=== PATIENT | female | born 1950 | race Caucasian/White ===

== ENCOUNTER 2017-01-19 15:07 | Inpatient (IN) | payer OTHER ==
[2017-01-19 17:09] LABS: Urine Bacteria Absent (Absent); Urine Bilirubin Negative (Negative); Urine Glucose Negative (Negative); Urine Nitrite Negative (Negative)
[2017-01-19 17:27] LABS: Hematocrit 38 % (35-47); Hemoglobin 12.7 g/dl (12.0-16.0); Mean Corpuscular HGB Conc 34 g/dl (31-36); Mean Corpuscular Hemoglobin 31 pg (27-31); Mean Corpuscular Volume 92 fL (80-97); Mean Platelet Volume 9 um3 (7.4-10.4); Red Blood Count 4.12 10^6/ul (4.0-5.4); Red Cell Distribution Width 13 % (10.5-15)
[2017-01-19 17:47] LABS: ALT 41 U/L (7-52); AST 62 U/L (13-39); Albumin 4.4 g/dL (3.2-5.2); Alkaline Phosphatase 97 U/L (34-104); Anion Gap 6 mmol/L (2-11); BUN/Creatinine Ratio 14.5 (8-20); Blood Urea Nitrogen 9 mg/dL (6-24); CO2 Carbon Dioxide 27 mmol/L (22-32); Calcium 9.6 mg/dL (8.6-10.3); Chloride 105 mmol/L (101-111); Creatine Kinase 391 U/L (10-223); EGFR African American 124.2 (>60); EGFR Non-African American 96.6 (>60); Globulin 3.4 g/dL (2-4); Glucose 80 mg/dL (70-100); Potassium 3.5 mmol/L (3.5-5.0); Sodium 138 mmol/L (133-145); Total Protein 7.8 g/dL (6.4-8.9)
[2017-01-19 18:01] LABS: Acetaminophen < 15 mcg/mL; Alcohol < 10 mg/dL (<10); Salicylate < 2.50 mg/dL (<30)
[2017-01-19 18:02] LABS: Phenytoin 35.9 mcg/mL (10-20)
[2017-01-19 18:05] LABS: Magnesium 1.9 mg/dL (1.9-2.7)
[2017-01-19 18:11] LABS: TSH (Thyroid Stimulating Horm) 5.34 mcIU/mL (0.34-5.60)
[2017-01-19] MEDS ORDERED: Acetaminophen TAB* 325 MG PO PRN (19:30)
[2017-01-19] MEDS ORDERED: CMCS: Melatonin (NF) 3 MG TAB PO PRN (19:30)
[2017-01-19] MEDS ORDERED: Ondansetron INJ* 2 MG/ML VIAL IV PRN (19:30)
[2017-01-19] MEDS ORDERED: Venlafaxine EXT RELEASE CAP* 37.5 MG PO ONE ×2 (19:31→23:00)
[2017-01-19] MEDS ORDERED: LORazepam TAB(*) 1 MG PO PRN (19:34)
--- NOTE | 2017-01-19 19:40 | HP ---
H&P (Free Text) History and Physical: PCP: Rich Sosa MD Date/Time of Evaluation: 01/19/2017 1930 CC: confusion HPI: Mrs Rd Mcclure is a 66YO female HX chronic pain, seizures, migraines, depression who per her is notably better now than upon arrival, but is still quite fidgety & unable to give an accurate history. She does states that she has not taken her meds for 2days, but cannot explain why. Her states he found tizanidine in the bathtub, hydromorphone spilled on the counter , another medication bottle full of water, etc. Essentially it is unclear whether she has taken no meds or possibly some meds excessively and others less than prescribed. Colleen Ray MD neurology saw her in the ED and recommends overnight observation, giving a small dose of venlafaxine in case she is withdrawing, and holding her phenytoin as she is toxic on it. PMedHx seizure disorder migraines ANJELICA hypothyroidism depression chronic pain cyclic vomiting syndrome levetiracetam induced mood disorder Allergies Meperidine [From Demerol HCl] Allergy (Severe, Verified 12/28/16 08:57) seizures Doxepin Adverse Reaction (Severe, Verified 12/28/16 08:57) See Comment MOOD ALERATIONS PER DR MATTHEWS, ON 01/28/15 Gabapentin Adverse Reaction (Severe, Verified 12/28/16 08:57) See Comment MOOD ALTERATIONS PER DR MATTHEWS 01/28/15 Levetiracetam [From Keppra] Adverse Reaction (Severe, Verified 12/28/16 08:57) See Comment MOOD ALTERATIONS PER DR MATTHWES 01/28/15 Ambulatory Orders Morphine PUMP REFILL 8.279 mg INTRATHEC DAILY 12/18/12 Rivaroxaban TAB(*) [Xarelto 20 mg] 20 mg PO DAILY 03/15/15 Tizanidine HCl 8 mg PO Q6HR PRN MDD 32 mg 03/20/15 Methylphenidate TAB* [Ritalin TAB*] 10 mg PO 0700,1400 PRN 06/28/15 ARIPiprazole TAB* [Abilify TAB*] 5 mg PO DAILY 09/21/16 Calcium Carbonate-Cholecalcife [Calcium 600 + D 600-200 mg-Unit] 1 tab PO DAILY 09/21/16 Hydromorphone HCl [Dilaudid] 8 mg PO BID PRN 09/21/16 Levothyroxine TAB* [Synthroid TAB*] 75 mcg PO DAILY 09/21/16 Multiple Vitamins W/ Minerals [Centrum] 1 tab PO DAILY 09/21/16 Phenytoin CHEW TAB(*) [Dilantin Infatabs CHEW TAB(*)] 100 mg PO BID 09/21/16 Tretinoin Microsphere [Retin-A Micro] 0.04 % TOPICAL DAILY 09/21/16 Venlafaxine EXT RELEASE CAP* [Effexor Xr CAP*] 75 mg PO DAILY 09/21/16 PSurgHx numerous orthopedic surgeries appendectomy ectopic excision SocHx: no tobacco, alcohol, or recreational drugs; , lives with her ; full code status FamHx: unable to obtain at this time 2nd confusion ROS: as above, otherwise reviewed and all were negative Constitutional: NAD, normally developed, well-nourished white female vitals: Vital Signs Temp 36.1 C 01/19/17 15:14 Pulse 91 01/19/17 18:00 Resp 19 01/19/17 19:00 BP 111/83 01/19/17 16:26 Pulse Ox 96 01/19/17 18:00 Intake & Output 01/18/17 01/19/17 01/19/17 23:59 11:59 23:59 Weight 62.596 kg HEENM: atraumatic; sclera/conjunctiva: non-icteric/clear; hearing: clinically intact; oropharynx: clear, mucosa moist Neck: soft tissue: non-tender; thyroid: normal Pulmonary: clear to auscultation bilaterally, good aeration, no accessory muscle use CV: RR/RR, normal S1S2, no carotid bruit, no jugular venous distention, 2+ B DP/ PT, no edema Abdominal: soft, non-distended, non-tender, no rebound/guarding/rigidity, normoactive bowel sounds, no hepatosplenomegaly or masses, no costovertebral angle tenderness Musculoskeletal: general: grossly intact; gait: borderline stability Integumental: normal appearance and texture Psychiatric orientation: AA&O to PP, loosely to situation affect: agitated mood: cooperative eye contact: poor content: unreliable memory: currently impaired responses: timely insight: poor Testing: Lab Results 01/19/17 01/19/17 01/19/17 Range/Units 16:18 17:15 17:15 WBC 11.0 H (3.5-10.8) 10^3/ul RBC 4.12 (4.0-5.4) 10^6/ul Hgb 12.7 (12.0-16.0) g/dl Hct 38 (35-47) % MCV 92 (80-97) fL MCH 31 (27-31) pg MCHC 34 (31-36) g/dl RDW 13 (10.5-15) % Plt Count 261 (150-450) 10^3/ul MPV 9 (7.4-10.4) um3 Neut % (Auto) 49.9 (38-83) % Lymph % (Auto) 36.3 (25-47) % Canadian % (Auto) 10.9 H (1-9) % Eos % (Auto) 1.9 (0-6) % Baso % (Auto) 1.0 (0-2) % Absolute Neuts (auto) 5.5 (1.5-7.7) 10^3/ul Absolute Lymphs (auto) 4.0 (1.0-4.8) 10^3/ul Absolute Monos (auto) 1.2 H (0-0.8) 10^3/ul Absolute Eos (auto) 0.2 (0-0.6) 10^3/ul Absolute Basos (auto) 0.1 (0-0.2) 10^3/ul Absolute Nucleated RBC 0.01 10^3/ul Nucleated RBC % 0.1 INR (Anticoag Therapy) (0.89-1.11) Sodium 138 (133-145) mmol/L Potassium 3.5 (3.5-5.0) mmol/L Chloride 105 (101-111) mmol/L Carbon Dioxide 27 (22-32) mmol/L Anion Gap 6 (2-11) mmol/L BUN 9 (6-24) mg/dL Creatinine 0.62 (0.51-0.95) mg/dL Est GFR ( Amer) 124.2 (>60) Est GFR (Non-Af Amer) 96.6 (>60) BUN/Creatinine Ratio 14.5 (8-20) Glucose 80 (70-100) mg/dL Lactic Acid (0.5-2.0) mmol/L Calcium 9.6 (8.6-10.3) mg/dL Magnesium 1.9 (1.9-2.7) mg/dL Total Bilirubin 0.50 (0.2-1.0) mg/dL AST 62 H (13-39) U/L ALT 41 (7-52) U/L Alkaline Phosphatase 97 (34-104) U/L Ammonia (16-53) mol/L Total Creatine Kinase 391 H (10-223) U/L Troponin I 0.00 (<0.04) ng/mL Total Protein 7.8 (6.4-8.9) g/dL Albumin 4.4 (3.2-5.2) g/dL Globulin 3.4 (2-4) g/dL Albumin/Globulin Ratio 1.3 (1-3) TSH 5.34 (0.34-5.60) mcIU/mL Urine Color Yellow Urine Appearance Clear Urine pH 7.0 (5-9) Ur Specific Arlee 1.008 L (1.010-1.030) Urine Protein Negative (Negative) Urine Ketones Negative (Negative) Urine Blood Negative (Negative) Urine Nitrate Negative (Negative) Urine Bilirubin Negative (Negative) Urine Urobilinogen Negative (Negative) Ur Leukocyte Esterase Trace H (Negative) Urine WBC (Auto) Trace(0-5/hpf) (Absent) Urine RBC (Auto) Absent (Absent) Ur Squamous Epith Cells Present H (Absent) Urine Bacteria Absent (Absent) Urine Glucose Negative (Negative) Salicylates < 2.50 (<30) mg/dL Acetaminophen < 15 mcg/mL Phenytoin 35.9 H* (10-20) mcg/mL Serum Alcohol < 10 (<10) mg/dL 01/19/17 01/19/17 01/19/17 Range/Units 17:15 17:15 17:15 WBC (3.5-10.8) 10^3/ul RBC (4.0-5.4) 10^6/ul Hgb (12.0-16.0) g/dl Hct (35-47) % MCV (80-97) fL MCH (27-31) pg MCHC (31-36) g/dl RDW (10.5-15) % Plt Count (150-450) 10^3/ul MPV (7.4-10.4) um3 Neut % (Auto) (38-83) % Lymph % (Auto) (25-47) % Canadian % (Auto) (1-9) % Eos % (Auto) (0-6) % Baso % (Auto) (0-2) % Absolute Neuts (auto) (1.5-7.7) 10^3/ul Absolute Lymphs (auto) (1.0-4.8) 10^3/ul Absolute Monos (auto) (0-0.8) 10^3/ul Absolute Eos (auto) (0-0.6) 10^3/ul Absolute Basos (auto) (0-0.2) 10^3/ul Absolute Nucleated RBC 10^3/ul Nucleated RBC % INR (Anticoag Therapy) 1.37 H (0.89-1.11) Sodium (133-145) mmol/L Potassium (3.5-5.0) mmol/L Chloride (101-111) mmol/L Carbon Dioxide (22-32) mmol/L Anion Gap (2-11) mmol/L BUN (6-24) mg/dL Creatinine (0.51-0.95) mg/dL Est GFR ( Amer) (>60) Est GFR (Non-Af Amer) (>60) BUN/Creatinine Ratio (8-20) Glucose (70-100) mg/dL Lactic Acid 1.7 (0.5-2.0) mmol/L Calcium (8.6-10.3) mg/dL Magnesium (1.9-2.7) mg/dL Total Bilirubin (0.2-1.0) mg/dL AST (13-39) U/L ALT (7-52) U/L Alkaline Phosphatase (34-104) U/L Ammonia 51 (16-53) mol/L Total Creatine Kinase (10-223) U/L Troponin I (<0.04) ng/mL Total Protein (6.4-8.9) g/dL Albumin (3.2-5.2) g/dL Globulin (2-4) g/dL Albumin/Globulin Ratio (1-3) TSH (0.34-5.60) mcIU/mL Urine Color Urine Appearance Urine pH (5-9) Ur Specific Arlee (1.010-1.030) Urine Protein (Negative) Urine Ketones (Negative) Urine Blood (Negative) Urine Nitrate (Negative) Urine Bilirubin (Negative) Urine Urobilinogen (Negative) Ur Leukocyte Esterase (Negative) Urine WBC (Auto) (Absent) Urine RBC (Auto) (Absent) Ur Squamous Epith Cells (Absent) Urine Bacteria (Absent) Urine Glucose (Negative) Salicylates (<30) mg/dL Acetaminophen mcg/mL Phenytoin (10-20) mcg/mL Serum Alcohol (<10) mg/dL Impression: 66F presenting with confusion 2nd medication non-adherence, uncertain as to whether inadequate dosing or excessive dosing DIAGNOSIS & PLAN Primary confusion suspected 2nd medication non-adherence, phenytoin toxicity : concern for venlafaxine toxicity vs withdrawal, Dr Ray recommended 37.5mg x1 dose & monitor for effect : hold phenytoin, check level daily : neurochecks : supplemental oxygen : PRN lorazepam PO for anxiety/tremulousness : supportive care Secondary seizure disorder : hold & monitor phenytoin level as above hypothyroidism : continue levothyroxine depression : continue aripiprazole chronic pain : continue morphine intrathecal pump : hold hydromorphone cyclic vomiting syndrome : PRN anti-emetics Admission Rational: observation for confusion felt to be 2nd medication non- adherence DVTp: heparin SQ & SCDs Code Status: full HCP:
[2017-01-19] MEDS: Docusate CAP* 100 MG PO SCH (23:03)
[2017-01-19] MEDS: NS 0.9% 1000 ML* 1,000 ML IV SCH (23:15)
--- NOTE | 2017-01-19 23:55 | CONS ---
NEUROLOGY CONSULTATION: DATE OF CONSULT: 01/19/17 REFERRING PROVIDER: Dr. Douglass. LOCATION: She is in the emergency room. CHIEF COMPLAINT: Confusion, falling, tremors. HISTORY OF PRESENT ILLNESS: Jennifer Sultana is now 66 years old and who has been known to me for years for chronic back pain, cyclic vomiting, and seizures. She was last seen in my office on 12/26/15. She had had seizures in the distant past and then episodes of cyclic vomiting with some followed by confusion and seizures. She was put on Dilantin and that seemed to work quite well. When I last saw her in the office, she was on Dilantin 200 mg b.i.d. According to Goyo and her, she has been progressively confused and falling for at least 2 to 3 weeks, if not 4. They travelled to [place] and she changed the way that she keeps track of her medications, by putting them all in a few containers. Previously, she would have a weekly capacity planner. She admits and he admits that she was probably not taking them regularly and got very confused over what was what. They returned back and she seemed even more confused. Last night, he found her on the floor with medications in the tub, on the floor , and on the sink, some of which have been wet and decomposed. She said that she stopped all of her medications for the last 2 days, but she cannot give a coherent reason why. She does have an intrathecal pump in and so she does have opioids from that way, but other medicines have been changed. Of note, with this hospitalization, her phenytoin level has come back today at 35.9. She says she has not taken any for 2 days but she is extremely distractible and inconsistent with her story and so it is really hard to be certain as to when she last took it. Goyo's presumption is that she was probably even more toxic a few days ago on it. PAST MEDICAL HISTORY: Notable for chronic neck and back pain, numerous spinal surgeries and orthopedic surgeries over many decades. Epilepsy, deep vein thrombosis. MEDICATIONS: Medications are very hard to sort out as they cannot give me a coherent list. According to my last office visit, she is on: 1. Dilantin 200 mg b.i.d. 2. Xarelto 20 mg p.o. daily. 3. Abilify 5 mg p.o. daily. 4. Dilaudid 8 mg every 4 hours, which she says she takes 1 or 2. 5. Tizanidine 8 mg p.o. q.6 hours. 6. Morphine pump. 7. Ritalin 5 mg one p.o. b.i.d. 8. Effexor XR 37.5 mg one daily. She says that the Effexor is 25 mg and she is taking 3 in the morning and 2 at night and he says that she is supposed to be taking 3 a day, so again, this is all quite uncertain and unsubstantiated. REVIEW OF SYSTEMS: Notable for multiple falls over several weeks including a couple of abrasions, but no serious injuries. She has chronic pain and gets blocks periodically when Xarelto is held. She has been very twitchy and shaky for days, if not weeks. Her cyclical vomiting has been better since she was put on Dilantin over a year ago. She has been doing compulsive behavior such as singing, which she seems not to be able to stop at times. She has been unsteady on her feet. PHYSICAL EXAMINATION: She is extremely distractible and inattentive. Her blood pressure is 140/70, heart rate is about 100 and seems regular, respiratory rate is 18. Heart is in regular rate and rhythm. Neurologically, eye movements are full without nystagmus. She has fairly constant bifacial dyskinesias. She has severe action and sustention tremor in both hands but no asterixis or myoclonus. She has had dyskinesias in her limbs. Keeps moving her trunk and legs. She is alert but extremely inattentive and a poor historian. She jumps from topic to topic. Language is otherwise generally fluent. LABORATORY DATA: Notable for an EKG in sinus rhythm, there is quite a bit of movement artifact on it from tremor. She has a nonspecific intraventricular conduction delay. QTC corrected is 496. Other laboratory data includes a CBC notable for hemoglobin 11.0 and otherwise a normal CBC. Coags notable for INR 1.37. Chemistry is notable for CPK 391, AST 62. Ammonia level is 51 and chemistries are otherwise unremarkable. Toxicology notable for a phenytoin level 35.9. IMPRESSION: At least Dilantin toxicity, if not multiple medication toxicity. Serotonin syndrome or even serotonin withdrawal remained a possibility. Also she is very dyskinetic and so she may have taken too much Abilify or alternatively be withdrawing from Abilify. I think she needs to be hospitalized and have her heart monitored. I recommend checking Dilantin levels every day and holding it for now. She should probably get benzodiazepines either on a VAM protocol or on a p.r.n. basis and I would like to discuss that with the hospitalist. Recommend giving her a small dose of serotonergic agent such as her Effexor in case she is having serotonin withdrawal. Abilify should probably be resumed tomorrow. Her liver enzymes should probably be followed but so far, she just has a slight elevation in one of them. I have discussed by phone with Dr. Douglass who is signing off apparently to Dr. Power. CC: Dr. Sosa* [id number]/[facility] #: [id number] MTDD
[2017-01-20 03:49] LABS: Benzodiazepine Urine Screen Presumptive Positive (None Detect)
[2017-01-20 05:49] LABS: Hematocrit 35 % (35-47); Hemoglobin 11.7 g/dl (12.0-16.0); Mean Corpuscular HGB Conc 34 g/dl (31-36); Mean Corpuscular Hemoglobin 31 pg (27-31); Mean Corpuscular Volume 93 fL (80-97); Mean Platelet Volume 8 um3 (7.4-10.4); Red Blood Count 3.74 10^6/ul (4.0-5.4); Red Cell Distribution Width 13 % (10.5-15); White Blood Count 7.1 10^3/ul (3.5-10.8)
[2017-01-20] MEDS: Levothyroxine TAB* 75 MCG TAB PO SCH (05:53)
[2017-01-20] MEDS: Omeprazole CAP* 20 MG PO SCH (05:54)
[2017-01-20 06:18] LABS: Phenytoin 30.3 mcg/mL (10-20)
[2017-01-20] MEDS: NS 0.9% 1000 ML* 1,000 ML IV SCH (07:24)
[2017-01-20] MEDS: Docusate CAP* 100 MG PO SCH ×2 (08:54→20:14)
[2017-01-20] MEDS: ARIPiprazole TAB* 5 MG PO SCH (08:54)
[2017-01-20] MEDS ORDERED: MORPHINE INTRATHEC SCH (09:00)
[2017-01-20] MEDS ORDERED: INTRATHECAL PAIN PUMP INTRATHEC SCH (14:00)
--- NOTE | 2017-01-20 15:31 | PN ---
Subjective Date of Service: 01/20/17 Interval History: . Patient evaluated at the bedside. A+O x3 but is noted to be lethargic. She denies pain. Reports she feels better today "less sleepy". Denies SOB, CP, fever or chills. No abdominal pain, N/V/D. Spoke to over phone who reported she vomited last week in the middle of the night but it was only once, he denies any recent illness such as a cold, fever, diarrhea. Objective Active Medications: Acetaminophen (Tylenol Tab*) 650 mg PO Q6H PRN PRN Reason: FEVER/PAIN Last Admin: 01/19/17 23:03 Dose: 650 mg Aripiprazole (Abilify Tab*) 5 mg PO DAILY [facility] Last Admin: 01/20/17 08:54 Dose: 5 mg Docusate Sodium (Colace Cap*) 200 mg PO BID [facility] Last Admin: 01/20/17 08:54 Dose: 200 mg Sodium Chloride (Ns 0.9% 1000 Ml*) 1,000 mls @ 125 mls/hr IV PER RATE [facility] Last Admin: 01/20/17 07:24 Dose: 125 mls/hr Levothyroxine Sodium (Synthroid Tab*) 75 mcg PO DAILY@0600 [facility] Last Admin: 01/20/17 05:53 Dose: 75 mcg Lorazepam (Ativan Tab(*)) 1 mg PO Q4H PRN PRN Reason: ANXIETY Last Admin: 01/20/17 03:58 Dose: 1 mg Melatonin (Melatonin (Nf)) 3 mg PO BEDTIME PRN; Protocol PRN Reason: Sleep Miscellaneous (Intrathecal Pain Pump (Pt's Own)) 1 note INTRATHEC .SEE COMMENTS [facility] Omeprazole (Prilosec Cap*) 20 mg PO DAILY@0600 [facility] Last Admin: 01/20/17 05:54 Dose: 20 mg Ondansetron HCl (Zofran Inj*) 4 mg IV Q6H PRN PRN Reason: NAUSEA Rivaroxaban (Xarelto (*)) 20 mg PO DAILY@1700 [facility] Venlafaxine HCl (Effexor Tab (Nf)) 25 mg PO DAILY [facility] Vital Signs 01/19/17 01/19/17 01/19/17 20:30 20:32 20:38 Temperature 97.7 F Pulse Rate 93 Respiratory Rate Blood Pressure 154/74 (mmHg) O2 Sat by Pulse 96 Oximetry 01/19/17 01/19/17 01/20/17 21:25 23:59 00:37 Temperature 98.7 F 97.7 F Pulse Rate 90 86 Respiratory 18 16 20 Rate Blood Pressure 135/81 131/67 (mmHg) O2 Sat by Pulse 96 96 Oximetry 01/20/17 01/20/17 01/20/17 03:56 03:58 05:56 Temperature 97.8 F Pulse Rate 95 Respiratory 16 20 18 Rate Blood Pressure 154/72 (mmHg) O2 Sat by Pulse 96 Oximetry 01/20/17 01/20/17 01/20/17 07:41 08:00 11:57 Temperature 97.5 F 97.3 F Pulse Rate 91 81 Respiratory 16 16 17 Rate Blood Pressure 153/87 144/86 (mmHg) O2 Sat by Pulse 97 97 Oximetry 01/20/17 01/20/17 13:45 15:11 Temperature 98.4 F Pulse Rate 82 Respiratory 16 Rate Blood Pressure 142/75 (mmHg) O2 Sat by Pulse 96 96 Oximetry Oxygen Devices in Use Now: None Appearance: 66 yo female laying in bed resting, opens eyes when I enter the room , interactive but sleepy, A+O x3. follows commands and asnswer questions. Eyes: No Scleral Icterus, PERRLA Ears/Nose/Mouth/Throat: NL Teeth, Lips, Gums, Mucous Membranes Moist Neck: NL Appearance and Movements; NL JVP Respiratory: Symmetrical Chest Expansion and Respiratory Effort, Clear to Auscultation Cardiovascular: NL Sounds; No Murmurs; No JVD, RRR, No Edema Abdominal: NL Sounds; No Tenderness; No Distention, - - left lower quad noted intrathecal pump. Lymphatic: No Cervical Adenopathy Extremities: No Edema, No Clubbing, Cyanosis Skin: No Rash or Ulcers, No Nodules or Sclerosis Neurological: Alert and Oriented x 3, NL Sensation, NL Gait, NL Muscle Strength and Tone Lines/Tubes/Other Access: Clean, Dry and Intact PICC Line Nutrition: Taking PO's Result Diagrams: 01/20/17 05:33 01/19/17 17:15 Assess/Plan/Problems-Billing Assessment: 66 yo female with PMH of chronic pain with intrathecal morphine pump , seizures, migraines, depression who presented with with concern for confusion. - Patient Problems (1) Confusion Comment: - improved from admission but continues to be lethargic. Suspect Phenytoin toxicity and polysubstance abuse vs overdose?? - Neurologist, Dr. Ray, following. Recommends tele monitoring, - recheck phenytoin level in am. - Obtain EKG (2) Polysubstance abuse Comment: - ?? - per she typically does not abuse her pain medications - hold Ritalin, Dilaudid (3) Chronic pain Comment: Continue Intrathecal morphine pump hold diluadid (4) Seizures Comment: follow by Dr. Ray. Phenytoin toxicity - level 30 this am, recheck in am, monitor on tele seizure precautions (5) Hypothyroid Comment: Continue levothyroxine. (6) Hx of pulmonary embolus Comment: - continue xarelto (7) Full code status (8) DVT prophylaxis Comment: xarelto Status and Disposition: switch to inpatient.
[2017-01-20] MEDS: Rivaroxaban TAB(*) 20 MG TAB PO SCH (16:26)
[2017-01-20] MEDS: CMCS: Venlafaxine TAB (NF) 25 MG TAB PO SCH (16:26)
--- NOTE | 2017-01-20 22:06 | CONS ---
NEUROLOGY FOLLOWUP: DATE OF FOLLOWUP: DATE OF DICTATION: 01/20/17 CHIEF COMPLAINT: Dilantin toxicity. INTERVAL HISTORY: Since last evening, Jennifer has had her Dilantin held and she got 1 dose of Effexor. She has been getting lorazepam as needed. It looks like she got 1 mg at 4 this morning, but none since. She is pretty lethargic at this point, does not have much in the way of complaints, but other than feeling tired. MEDICATIONS: Reviewed and she is on: 1. Abilify 5 mg p.o. q. day. 2. Lorazepam 1 mg q.4 hours as needed. 3. Levothyroxine 75 mcg p.o. q. day. 4. Omeprazole 20 mg p.o. q. day. 5. Xarelto 20 mg p.o. q. day. PHYSICAL EXAM: She is afebrile, blood pressure 142/75, heart rate 82, and oxygen saturation 96%. She is lethargic and dysarthric. Eye movements are full without sustained nystagmus. She has mild tremor on [id number] maneuver, but not as bad as last evening. Again, she is pretty lethargic. IMPRESSION: Dilantin toxicity. RECOMMENDATION: Her Dilantin level came down from 35.9 last evening to 30.3 this morning. Recommend continuing to hold it and following levels. Would not reinstitute until it gets down into the low 20s and 100 mg a day. Probably should reinstitute her Effexor, so she does not go into serotonin withdrawal. We will follow up. [id number]/[facility] #: [id number] [facility]
[2017-01-21 05:18] LABS: Hematocrit 40 % (35-47); Hemoglobin 13.8 g/dl (12.0-16.0); Mean Corpuscular HGB Conc 34 g/dl (31-36); Mean Corpuscular Hemoglobin 31 pg (27-31); Mean Corpuscular Volume 91 fL (80-97); Mean Platelet Volume 8 um3 (7.4-10.4); Red Blood Count 4.44 10^6/ul (4.0-5.4); Red Cell Distribution Width 13 % (10.5-15); White Blood Count 7.1 10^3/ul (3.5-10.8)
[2017-01-21 05:31] LABS: BUN/Creatinine Ratio 11.5 (8-20); Calcium 9.2 mg/dL (8.6-10.3); EGFR African American 152.2 (>60); EGFR Non-African American 118.3 (>60); Globulin 3.2 g/dL (2-4); Potassium 3.4 mmol/L (3.5-5.0); Total Bilirubin 0.5 mg/dL (0.2-1.0); Total Protein 7.2 g/dL (6.4-8.9)
[2017-01-21 05:47] LABS: Phenytoin 24.6 mcg/mL (10-20)
[2017-01-21] MEDS: Levothyroxine TAB* 75 MCG TAB PO SCH (06:18)
[2017-01-21] MEDS: Omeprazole CAP* 20 MG PO SCH (06:18)
[2017-01-21] MEDS ORDERED: Potassium Chlor TAB* 20 MEQ TAB.ER PO ONE (07:09)
--- NOTE | 2017-01-21 07:57 | PN ---
Subjective Date of Service: 01/21/17 Interval History: pt sleeping when I arrived, woke easily, answered questions appropriately but continues to appear lethargic but more alert compared to yesterday. She denies any complaints. She states "Im always sleepy". Per she is more awake in the morning and by night time appears "more medicated". The pt and her denies she abuses her medications. She denies fever or chills. No SOB, CP. Reports "okay appetite". No abd pain, N/ V/D. normal BM this morning. Objective Active Medications: Acetaminophen (Tylenol Tab*) 650 mg PO Q6H PRN PRN Reason: FEVER/PAIN Last Admin: 01/19/17 23:03 Dose: 650 mg Aripiprazole (Abilify Tab*) 5 mg PO DAILY [facility] Last Admin: 01/20/17 08:54 Dose: 5 mg Docusate Sodium (Colace Cap*) 200 mg PO BID [facility] Last Admin: 01/20/17 20:14 Dose: 200 mg Levothyroxine Sodium (Synthroid Tab*) 75 mcg PO DAILY@0600 [facility] Last Admin: 01/21/17 06:18 Dose: 75 mcg Lorazepam (Ativan Tab(*)) 1 mg PO Q4H PRN PRN Reason: ANXIETY Last Admin: 01/20/17 03:58 Dose: 1 mg Melatonin (Melatonin (Nf)) 3 mg PO BEDTIME PRN; Protocol PRN Reason: Sleep Miscellaneous (Intrathecal Pain Pump (Pt's Own)) 1 note INTRATHEC .SEE COMMENTS [facility] Omeprazole (Prilosec Cap*) 20 mg PO DAILY@0600 [facility] Last Admin: 01/21/17 06:18 Dose: 20 mg Ondansetron HCl (Zofran Inj*) 4 mg IV Q6H PRN PRN Reason: NAUSEA Rivaroxaban (Xarelto (*)) 20 mg PO DAILY@1700 [facility] Last Admin: 01/20/17 16:26 Dose: 20 mg Venlafaxine HCl (Effexor Tab (Nf)) 25 mg PO DAILY [facility] Last Admin: 01/20/17 16:26 Dose: 25 mg Vital Signs 01/20/17 01/20/17 01/20/17 16:05 16:44 16:45 Temperature 98.1 F 98.2 F Pulse Rate 72 88 Respiratory 16 14 14 Rate Blood Pressure 122/107 134/65 (mmHg) O2 Sat by Pulse 99 100 Oximetry 01/20/17 01/20/17 01/21/17 20:00 20:10 00:06 Temperature 98.3 F 98.4 F Pulse Rate 79 76 Respiratory 15 15 16 Rate Blood Pressure 158/98 (mmHg) O2 Sat by Pulse 100 95 Oximetry 01/21/17 04:00 Temperature 97.9 F Pulse Rate 92 Respiratory 16 Rate Blood Pressure 153/85 (mmHg) O2 Sat by Pulse 97 Oximetry Oxygen Devices in Use Now: None Appearance: 66 yo female laying in bed resting, A+O x3 in NAD Eyes: No Scleral Icterus, PERRLA Ears/Nose/Mouth/Throat: NL Teeth, Lips, Gums, Mucous Membranes Moist Neck: NL Appearance and Movements; NL JVP Respiratory: Symmetrical Chest Expansion and Respiratory Effort, Clear to Auscultation Cardiovascular: NL Sounds; No Murmurs; No JVD, RRR, No Edema Abdominal: NL Sounds; No Tenderness; No Distention Extremities: No Edema, No Clubbing, Cyanosis Skin: No Rash or Ulcers, No Nodules or Sclerosis Neurological: Alert and Oriented x 3, NL Sensation, NL Muscle Strength and Tone Lines/Tubes/Other Access: Clean, Dry and Intact Peripheral IV Nutrition: Taking PO's Result Diagrams: 01/21/17 05:06 01/21/17 05:06 Assess/Plan/Problems-Billing Assessment: 66 yo female with PMH of chronic pain with intrathecal morphine pump , seizures, migraines, depression who presented with with concern for confusion. - Patient Problems (1) Confusion Comment: -much improvement from admission but continues to be mildy lethargic. Suspect phenytoin toxicity and polysubstance. No signs of infection. Per and pt they are adamant she takes her medications appropriately, but the states she is "out of it" at her baseline due to her medications so I suspect she was confused and was taking her pills inappropriately. Pt and have refused locked medication box and VNS services. Will need close f/u with PCP. - Phenytoin level trending down. No arrythmias noted on tele. - Hold Ritalin, PRN home Diluadid. Continue lower dose effexor (2) Chronic pain Comment: Follow by the pain clinic, with hx of multiple back surgeries, lumbar injections , chronic opioid use with intrathecal morphine pump and po diluadid prn. Continue Intrathecal morphine pump hold home diluadid (3) Seizures Comment: Neurology following. Phenytoin toxicity on admission, now trending down- level 24.6 this am. Hold Dilantin for now - neurology will decide when to restart. Recheck Dilantin level in am continue monitor on tele seizure precautions (4) Hypothyroid Comment: Continue levothyroxine. (5) Hx of pulmonary embolus Comment: - continue xarelto (6) Depressed Comment: - continue Effexor, Abilify - Discussed with pt and the risk of abilify and opioid combination and should follow up closely with PCP and pain clinic (7) Full code status (8) DVT prophylaxis Comment: xarelto Status and Disposition: continue inpatient. Tried to call PCP, not in office today.
[2017-01-21] MEDS: CMCS: Venlafaxine TAB (NF) 25 MG TAB PO SCH ×2 (08:26→20:37)
[2017-01-21] MEDS: Docusate CAP* 100 MG PO SCH ×2 (08:26→20:36)
[2017-01-21] MEDS: ARIPiprazole TAB* 5 MG PO SCH (08:26)
[2017-01-21] MEDS ORDERED: Venlafaxine EXT RELEASE CAP* 37.5 MG PO ONE (15:40)
--- NOTE | 2017-01-21 16:34 | PN ---
Progress Note - Progress Note SOAP: Neurology progress note Date of service: 01/21/17 Subjective: The patient feels slightly better today. She still does not think is back to her baseline. There has been no new symptoms, other than her noted more orolingual dyskinesia some time this afternoon, which is new, but he said he may have seen hints of these movements before. Objective: Vital Signs Temp Pulse Resp BP Pulse Ox 98.3 F 102 14 138/94 100 01/21/17 13:46 01/21/17 13:46 01/21/17 13:46 01/21/17 13:46 01/21/17 13:46 Current Medications Acetaminophen (Tylenol Tab*) 650 mg PO Q6H PRN PRN Reason: FEVER/PAIN Last Admin: 01/19/17 23:03 Dose: 650 mg Aripiprazole (Abilify Tab*) 5 mg PO DAILY [facility] Last Admin: 01/21/17 08:26 Dose: 5 mg Docusate Sodium (Colace Cap*) 200 mg PO BID [facility] Last Admin: 01/21/17 08:26 Dose: 200 mg Levothyroxine Sodium (Synthroid Tab*) 75 mcg PO DAILY@0600 [facility] Last Admin: 01/21/17 06:18 Dose: 75 mcg Lorazepam (Ativan Tab(*)) 1 mg PO Q4H PRN PRN Reason: ANXIETY Last Admin: 01/20/17 03:58 Dose: 1 mg Melatonin (Melatonin (Nf)) 3 mg PO BEDTIME PRN; Protocol PRN Reason: Sleep Miscellaneous (Intrathecal Pain Pump (Pt's Own)) 1 note INTRATHEC .SEE COMMENTS [facility] Omeprazole (Prilosec Cap*) 20 mg PO DAILY@0600 [facility] Last Admin: 01/21/17 06:18 Dose: 20 mg Ondansetron HCl (Zofran Inj*) 4 mg IV Q6H PRN PRN Reason: NAUSEA Phenytoin Sodium (Dilantin Infatabs Chew Tab(*)) 100 mg PO ONCE ONE Stop: 01/21/17 21:01 Phenytoin Sodium (Dilantin Infatabs Chew Tab(*)) 100 mg PO ONCE ONE Stop: 01/22/17 06:01 Rivaroxaban (Xarelto (*)) 20 mg PO DAILY@1700 [facility] Last Admin: 01/20/17 16:26 Dose: 20 mg Venlafaxine HCl (Effexor Tab (Nf)) 50 mg PO TID [facility] Laboratory Results - last 24 hr 01/21/17 01/21/17 05:06 05:06 WBC 7.1 RBC 4.44 Hgb 13.8 Hct 40 MCV 91 MCH 31 MCHC 34 RDW 13 Plt Count 277 MPV 8 Neut % (Auto) 58.1 Lymph % (Auto) 29.1 [place] % (Auto) 8.4 Eos % (Auto) 3.0 Baso % (Auto) 1.4 Absolute Neuts (auto) 4.2 Absolute Lymphs (auto) 2.1 Absolute Monos (auto) 0.6 Absolute Eos (auto) 0.2 Absolute Basos (auto) 0.1 Absolute Nucleated RBC 0 Nucleated RBC % 0 Sodium 135 Potassium 3.4 L Chloride 104 Carbon Dioxide 24 Anion Gap 7 BUN 6 Creatinine 0.52 Est GFR ( Amer) 152.2 Est GFR (Non-Af Amer) 118.3 BUN/Creatinine Ratio 11.5 Glucose 87 Calcium 9.2 Magnesium 2.0 Total Bilirubin 0.50 AST 55 H ALT 40 Alkaline Phosphatase 96 Total Protein 7.2 Albumin 4.0 Globulin 3.2 Albumin/Globulin Ratio 1.3 Phenytoin 24.6 H On neurological exam, she is awake, alert, oriented. Face symmetric, pupils symmetric, no nystagmus on lateral or straight gaze. No clear dyskinesia noted. Finger to nose has mild action tremor on the right side, less noticeable on the left. Assessment and Plan: 66-year-old female with history of localization related epilepsy and chronic back and neck pain, presented with dilantin toxicity. Her serum level of phenytoinc is gradually decreasing and now is 24.6 today. On exam, only mild tremor on the right hand. Recommend to restart her phenytoin with a low dose of 100 mg po tonight, and another dose of 100 mg early in am, then a blood draw about 1 hr after the am dose. Further adjustments will be to the dose accordingly. 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
[2017-01-21] MEDS: Rivaroxaban TAB(*) 20 MG TAB PO SCH (18:17)
--- NOTE | 2017-01-21 20:42 | ED ---
Veena Lewis Salem, scribed for Julio C Douglass MD on 01/19/17 at 1651 . Neurological HPI - HPI Summary HPI Summary: Patient is 66 y/o female who presents to the ED with neurological deficits since 0300 today. Pts caregiver reports that 2 years ago she had a PE that left her cognitively impaired. Since then the pt has been experiencing many sx that the caregiver believes are worsening. These sx include trouble remembering , occasional tremors, compulsively singing, fidgeting, and chronic sleep problems among others. Last night her behavior hit a pinnacle, wherein she took all of her medication and drowned it in water (at 0300). Pt saw Dr. Sosa and spoke with Dr. Ray today, and they recommended she come to the ER. - History of Current Complaint Chief Complaint: EDNeurologicalDeficit Stated Complaint: TROUBLE SPEAKING Time Seen by Provider: 01/19/17 16:17 Hx Obtained From: Family/Readiness Paraprofessional Hx Last Menstrual Period: menopausal Onset/Duration: Gradual Onset, Started hours ago Onset Severity: Moderate Current Severity: Moderate Pain Intensity: 4 Pain Scale Used: 0-10 Numeric Character: Other: - Trouble remembering. Occasional tremors. Compulsively singing. Fidgeting. Chronic sleep problems. Aggravating: Nothing Alleviating: Medication - Additional Pertinent History Primary Care Physician: [id number] - Allergy/Home Medications Allergies/Adverse Reactions: Allergies Allergy/AdvReac Type Severity Reaction Status Date / Time Meperidine [From Demerol HCl] Allergy Severe seizures Verified 12/28/16 08:57 Doxepin AdvReac Severe See Comment Verified 12/28/16 08:57 Gabapentin AdvReac Severe See Comment Verified 12/28/16 08:57 Levetiracetam [From Keppra] AdvReac Severe See Comment Verified 12/28/16 08:57 PMH/Surg Hx/FS Hx/Imm Hx Endocrine/Hematology History: Reports: Hx Anticoagulant Therapy, Hx Thyroid Disease Denies: Hx Diabetes Cardiovascular History: Reports: 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 report History: Denies: Hx Renal Disease Musculoskeletal History: Reports: Hx Arthritis, Hx Back Problems, Hx Bursitis, Hx Fibromyalgia, Hx Orthopedic Injury, Hx Osteoporosis, Other Musculoskeletal History - neck surgery (fusion) 15-20 yrs ago Sensory History: Reports: Hx Contacts or Glasses Denies: Hx Hearing Aid Opthamlomology History: Reports: Hx Contacts or Glasses Neurological History: Reports: Hx Migraine - past hx/ not current, Hx Seizures, Other Neuro Impairments/Disorders - PAIN CLINIC PATIENT Psychiatric History: Reports: Hx Depression, Hx Suicide Attempt Denies: Hx of Violent Episodes Against Others - Cancer History Cancer Type, Location and Year: hx of skin cancer removal - Surgical History Surgery Procedure, Year, and Place: 2 ectopic pregnancies, cspinal fusion,back fusion, bilat knees,bilat feet, bilat hands,right shoulder, Hx Anesthesia Reactions: No Infectious Disease History: No Infectious Disease History: Denies: Hx Clostridium Difficile, Hx Hepatitis, Hx Human Immunodeficiency Virus (HIV), Hx of Known/Suspected MRSA, Hx Shingles, Hx Tuberculosis, Traveled Outside the [place] in Last 30 Days - Family History Known Family History: Positive: Hypertension, Other - Bipolar - Social History Alcohol Use: None Hx Substance Use: No Substance Use Type: Reports: Prescribed Substance Use Comment - Amount & Last Used: legal marijuana Hx Tobacco Use: No Smoking Status (MU): Never Smoked Tobacco Have You Smoked in the Last Year: No Review of Systems Positive: Other - Trouble remembering. Compulsively singing. Fidgeting. Chronic sleep problems.. Negative: Fever Neurological: Other - Occasional tremors. All Other Systems Reviewed And Are Negative: Yes Physical Exam Triage Information Reviewed: Yes Vital Signs On Initial Exam: Initial Vitals Temp Pulse Resp BP Pulse Ox 97.0 F 100 22 136/88 99 01/19/17 15:14 01/19/17 15:14 01/19/17 15:14 01/19/17 15:14 01/19/17 15:14 Vital Signs Reviewed: Yes Appearance: Positive: Well-Appearing, No Pain Distress Skin: Positive: Warm, Skin Color Reflects Adequate Perfusion, Diaphoretic Head/Face: Positive: Normal Head/Face Inspection Eyes: Positive: Normal Neck: Positive: Nontender Respiratory/Lung Sounds: Positive: Clear to Auscultation, Breath Sounds Present Cardiovascular: Positive: RRR Abdomen Description: Positive: Nontender, Soft Bowel Sounds: Positive: Present Musculoskeletal: Positive: Normal, Other - Constant motion. Neurological: Positive: Other - Occasional tremor. Keeps up with conversation. Psychiatric: Positive: Normal, Affect/Mood Appropriate - [place] Coma Scale Coma Scale Total: 14 Diagnostics - Vital Signs Vital Signs Temp Pulse Resp BP Pulse Ox 01/19/17 15:14 97.0 F 100 22 136/88 99 - Laboratory Lab Results: Lab Results 01/19/17 01/19/17 01/19/17 Range/Units 16:18 17:15 17:15 WBC 11.0 H (3.5-10.8) 10^3/ul RBC 4.12 (4.0-5.4) 10^6/ul Hgb 12.7 (12.0-16.0) g/dl Hct 38 (35-47) % MCV 92 (80-97) fL MCH 31 (27-31) pg MCHC 34 (31-36) g/dl RDW 13 (10.5-15) % Plt Count 261 (150-450) 10^3/ul MPV 9 (7.4-10.4) um3 Neut % (Auto) 49.9 (38-83) % Lymph % (Auto) 36.3 (25-47) % [place] % (Auto) 10.9 H (1-9) % Eos % (Auto) 1.9 (0-6) % Baso % (Auto) 1.0 (0-2) % Absolute Neuts (auto) 5.5 (1.5-7.7) 10^3/ul Absolute Lymphs (auto) 4.0 (1.0-4.8) 10^3/ul Absolute Monos (auto) 1.2 H (0-0.8) 10^3/ul Absolute Eos (auto) 0.2 (0-0.6) 10^3/ul Absolute Basos (auto) 0.1 (0-0.2) 10^3/ul Absolute Nucleated RBC 0.01 10^3/ul Nucleated RBC % 0.1 INR (Anticoag Therapy) (0.89-1.11) Sodium 138 (133-145) mmol/L Potassium 3.5 (3.5-5.0) mmol/L Chloride 105 (101-111) mmol/L Carbon Dioxide 27 (22-32) mmol/L Anion Gap 6 (2-11) mmol/L BUN 9 (6-24) mg/dL Creatinine 0.62 (0.51-0.95) mg/dL Est GFR ( Amer) 124.2 (>60) Est GFR (Non-Af Amer) 96.6 (>60) BUN/Creatinine Ratio 14.5 (8-20) Glucose 80 (70-100) mg/dL Lactic Acid (0.5-2.0) mmol/L Calcium 9.6 (8.6-10.3) mg/dL Magnesium 1.9 (1.9-2.7) mg/dL Total Bilirubin 0.50 (0.2-1.0) mg/dL AST 62 H (13-39) U/L ALT 41 (7-52) U/L Alkaline Phosphatase 97 (34-104) U/L Ammonia (16-53) mol/L Total Creatine Kinase 391 H (10-223) U/L Troponin I 0.00 (<0.04) ng/mL Total Protein 7.8 (6.4-8.9) g/dL Albumin 4.4 (3.2-5.2) g/dL Globulin 3.4 (2-4) g/dL Albumin/Globulin Ratio 1.3 (1-3) TSH 5.34 (0.34-5.60) mcIU/mL Urine Color Yellow Urine Appearance Clear Urine pH 7.0 (5-9) Ur Specific [place] 1.008 L (1.010-1.030) Urine Protein Negative (Negative) Urine Ketones Negative (Negative) Urine Blood Negative (Negative) Urine Nitrate Negative (Negative) Urine Bilirubin Negative (Negative) Urine Urobilinogen Negative (Negative) Ur Leukocyte Esterase Trace H (Negative) Urine WBC (Auto) Trace(0-5/hpf) (Absent) Urine RBC (Auto) Absent (Absent) Ur Squamous Epith Cells Present H (Absent) Urine Bacteria Absent (Absent) Urine Glucose Negative (Negative) Salicylates < 2.50 (<30) mg/dL Urine Opiates Screen (None Detect) Acetaminophen < 15 mcg/mL Ur Barbiturates Screen (None Detect) Phenytoin 35.9 H* (10-20) mcg/mL Ur Phencyclidine Scrn (None Detect) Ur Amphetamines Screen (None Detect) U Benzodiazepines Scrn (None Detect) Urine Cocaine Screen (None Detect) U Cannabinoids Screen (None Detect) Serum Alcohol < 10 (<10) mg/dL 01/19/17 01/19/17 01/19/17 Range/Units 17:15 17:15 17:15 WBC (3.5-10.8) 10^3/ul RBC (4.0-5.4) 10^6/ul Hgb (12.0-16.0) g/dl Hct (35-47) % MCV (80-97) fL MCH (27-31) pg MCHC (31-36) g/dl RDW (10.5-15) % Plt Count (150-450) 10^3/ul MPV (7.4-10.4) um3 Neut % (Auto) (38-83) % Lymph % (Auto) (25-47) % [place] % (Auto) (1-9) % Eos % (Auto) (0-6) % Baso % (Auto) (0-2) % Absolute Neuts (auto) (1.5-7.7) 10^3/ul Absolute Lymphs (auto) (1.0-4.8) 10^3/ul Absolute Monos (auto) (0-0.8) 10^3/ul Absolute Eos (auto) (0-0.6) 10^3/ul Absolute Basos (auto) (0-0.2) 10^3/ul Absolute Nucleated RBC 10^3/ul Nucleated RBC % INR (Anticoag Therapy) 1.37 H (0.89-1.11) Sodium (133-145) mmol/L Potassium (3.5-5.0) mmol/L Chloride (101-111) mmol/L Carbon Dioxide (22-32) mmol/L Anion Gap (2-11) mmol/L BUN (6-24) mg/dL Creatinine (0.51-0.95) mg/dL Est GFR ( Amer) (>60) Est GFR (Non-Af Amer) (>60) BUN/Creatinine Ratio (8-20) Glucose (70-100) mg/dL Lactic Acid 1.7 (0.5-2.0) mmol/L Calcium (8.6-10.3) mg/dL Magnesium (1.9-2.7) mg/dL Total Bilirubin (0.2-1.0) mg/dL AST (13-39) U/L ALT (7-52) U/L Alkaline Phosphatase (34-104) U/L Ammonia 51 (16-53) mol/L Total Creatine Kinase (10-223) U/L Troponin I (<0.04) ng/mL Total Protein (6.4-8.9) g/dL Albumin (3.2-5.2) g/dL Globulin (2-4) g/dL Albumin/Globulin Ratio (1-3) TSH (0.34-5.60) mcIU/mL Urine Color Urine Appearance Urine pH (5-9) Ur Specific [place] (1.010-1.030) Urine Protein (Negative) Urine Ketones (Negative) Urine Blood (Negative) Urine Nitrate (Negative) Urine Bilirubin (Negative) Urine Urobilinogen (Negative) Ur Leukocyte Esterase (Negative) Urine WBC (Auto) (Absent) Urine RBC (Auto) (Absent) Ur Squamous Epith Cells (Absent) Urine Bacteria (Absent) Urine Glucose (Negative) Salicylates (<30) mg/dL Urine Opiates Screen (None Detect) Acetaminophen mcg/mL Ur Barbiturates Screen (None Detect) Phenytoin (10-20) mcg/mL Ur Phencyclidine Scrn (None Detect) Ur Amphetamines Screen (None Detect) U Benzodiazepines Scrn (None Detect) Urine Cocaine Screen (None Detect) U Cannabinoids Screen (None Detect) Serum Alcohol (<10) mg/dL 01/20/17 01/20/17 01/20/17 Range/Units 03:00 05:33 05:33 WBC 7.1 (3.5-10.8) 10^3/ul RBC 3.74 L (4.0-5.4) 10^6/ul Hgb 11.7 L (12.0-16.0) g/dl Hct 35 (35-47) % MCV 93 (80-97) fL MCH 31 (27-31) pg MCHC 34 (31-36) g/dl RDW 13 (10.5-15) % Plt Count 216 (150-450) 10^3/ul MPV 8 (7.4-10.4) um3 Neut % (Auto) (38-83) % Lymph % (Auto) (25-47) % [place] % (Auto) (1-9) % Eos % (Auto) (0-6) % Baso % (Auto) (0-2) % Absolute Neuts (auto) (1.5-7.7) 10^3/ul Absolute Lymphs (auto) (1.0-4.8) 10^3/ul Absolute Monos (auto) (0-0.8) 10^3/ul Absolute Eos (auto) (0-0.6) 10^3/ul Absolute Basos (auto) (0-0.2) 10^3/ul Absolute Nucleated RBC 10^3/ul Nucleated RBC % INR (Anticoag Therapy) (0.89-1.11) Sodium (133-145) mmol/L Potassium (3.5-5.0) mmol/L Chloride (101-111) mmol/L Carbon Dioxide (22-32) mmol/L Anion Gap (2-11) mmol/L BUN (6-24) mg/dL Creatinine (0.51-0.95) mg/dL Est GFR ( Amer) (>60) Est GFR (Non-Af Amer) (>60) BUN/Creatinine Ratio (8-20) Glucose (70-100) mg/dL Lactic Acid (0.5-2.0) mmol/L Calcium (8.6-10.3) mg/dL Magnesium (1.9-2.7) mg/dL Total Bilirubin (0.2-1.0) mg/dL AST (13-39) U/L ALT (7-52) U/L Alkaline Phosphatase (34-104) U/L Ammonia (16-53) mol/L Total Creatine Kinase 278 H (10-223) U/L Troponin I (<0.04) ng/mL Total Protein (6.4-8.9) g/dL Albumin (3.2-5.2) g/dL Globulin (2-4) g/dL Albumin/Globulin Ratio (1-3) TSH (0.34-5.60) mcIU/mL Urine Color Urine Appearance Urine pH (5-9) Ur Specific [place] (1.010-1.030) Urine Protein (Negative) Urine Ketones (Negative) Urine Blood (Negative) Urine Nitrate (Negative) Urine Bilirubin (Negative) Urine Urobilinogen (Negative) Ur Leukocyte Esterase (Negative) Urine WBC (Auto) (Absent) Urine RBC (Auto) (Absent) Ur Squamous Epith Cells (Absent) Urine Bacteria (Absent) Urine Glucose (Negative) Salicylates (<30) mg/dL Urine Opiates Screen Presumptive positive H (None Detect) Acetaminophen mcg/mL Ur Barbiturates Screen None detected (None Detect) Phenytoin 30.3 H* (10-20) mcg/mL Ur Phencyclidine Scrn None detected (None Detect) Ur Amphetamines Screen None detected (None Detect) U Benzodiazepines Scrn Presumptive positive H (None Detect) Urine Cocaine Screen None detected (None Detect) U Cannabinoids Screen Presumptive positive H (None Detect) Serum Alcohol (<10) mg/dL Result Diagrams: 01/21/17 05:06 01/21/17 05:06 Lab Statement: Any lab studies that have been ordered have been reviewed, and results considered in the medical decision making process. - EKG 1802 EKG Interpretation: Sinus tachycardia @ 98 bpm. Baseline wander. Course/Dx - Course Course Of Treatment: Ms. Rd Mcclure was brought into the ED agitated and confused and found to have Dilantin toxicity. - Diagnoses Provider Diagnoses: Dilantin poisoning - Physician Notifications Discussed Care of Patient With: Dr. Ray (Neurologist) @ [id number]. - Critical Care Time Critical Care Time: 30-74 min Discharge - Discharge Plan Condition: Stable Disposition: ADMITTED TO [facility] The documentation as recorded by the Veena paz Salem accurately reflects the service I personally performed and the decisions made by , Julio C Douglass MD.
[2017-01-21] MEDS ORDERED: Phenytoin CHEW TAB(*) 50 MG PO ONE (21:00)
[2017-01-21] MEDS ORDERED: CMC: Venlafaxine TAB (NF) 25 MG TAB PO SCH (21:00)
[2017-01-21] MEDS ORDERED: Venlafaxine TAB (NF) 25 MG TAB PO SCH (21:00)
[2017-01-22] MEDS ORDERED: tiZANidine TAB* 2 MG PO PRN (01:44)
[2017-01-22] MEDS: Levothyroxine TAB* 75 MCG TAB PO SCH (05:06)
[2017-01-22] MEDS: Omeprazole CAP* 20 MG PO SCH (05:06)
[2017-01-22] MEDS ORDERED: Phenytoin CHEW TAB(*) 50 MG PO ONE (06:00)
[2017-01-22 06:13] LABS: BUN/Creatinine Ratio 17.9 (8-20); Calcium 9.4 mg/dL (8.6-10.3); EGFR African American 139.7 (>60); EGFR Non-African American 108.6 (>60); Potassium 3.8 mmol/L (3.5-5.0)
[2017-01-22 06:17] LABS: Hematocrit 43 % (35-47); Hemoglobin 14.4 g/dl (12.0-16.0); Mean Corpuscular HGB Conc 33 g/dl (31-36); Mean Corpuscular Hemoglobin 31 pg (27-31); Mean Corpuscular Volume 94 fL (80-97); Mean Platelet Volume 9 um3 (7.4-10.4); Red Blood Count 4.61 10^6/ul (4.0-5.4); Red Cell Distribution Width 13 % (10.5-15); White Blood Count 9.8 10^3/ul (3.5-10.8)
[2017-01-22] MEDS ORDERED: NS 0.9% 1000 ML* 1,000 ML IV SCH (07:45)
[2017-01-22] MEDS: CMCS: Venlafaxine TAB (NF) 25 MG TAB PO SCH ×2 (09:28→14:54)
[2017-01-22] MEDS: ARIPiprazole TAB* 5 MG PO SCH (09:28)
[2017-01-22] MEDS: Docusate CAP* 100 MG PO SCH (09:29)
--- NOTE | 2017-01-22 11:40 | DCNOTE ---
Subjective Date of Service: 01/22/17 Interval History: Patient feels much better today. Denies any complaints. Per she is at her baseline. Pt denies fever or chills. Dizziness has resolved. Feels steady on her feet and has been ambulating. Objective Active Medications: Acetaminophen (Tylenol Tab*) 650 mg PO Q6H PRN PRN Reason: FEVER/PAIN Last Admin: 01/19/17 23:03 Dose: 650 mg Aripiprazole (Abilify Tab*) 5 mg PO DAILY [facility] Last Admin: 01/22/17 09:28 Dose: 5 mg Docusate Sodium (Colace Cap*) 200 mg PO BID [facility] Last Admin: 01/22/17 09:29 Dose: Not Given Sodium Chloride (Ns 0.9% 1000 Ml*) 1,000 mls @ 125 mls/hr IV PER RATE [facility] Stop: 01/22/17 15:44 Last Admin: 01/22/17 09:29 Dose: 125 mls/hr Levothyroxine Sodium (Synthroid Tab*) 75 mcg PO DAILY@0600 [facility] Last Admin: 01/22/17 05:06 Dose: 75 mcg Lorazepam (Ativan Tab(*)) 1 mg PO Q4H PRN PRN Reason: ANXIETY Last Admin: 01/20/17 03:58 Dose: 1 mg Melatonin (Melatonin (Nf)) 3 mg PO BEDTIME PRN; Protocol PRN Reason: Sleep Miscellaneous (Intrathecal Pain Pump (Pt's Own)) 1 note INTRATHEC .SEE COMMENTS [facility] Omeprazole (Prilosec Cap*) 20 mg PO DAILY@0600 [facility] Last Admin: 01/22/17 05:06 Dose: 20 mg Ondansetron HCl (Zofran Inj*) 4 mg IV Q6H PRN PRN Reason: NAUSEA Rivaroxaban (Xarelto (*)) 20 mg PO DAILY@1700 [facility] Last Admin: 01/21/17 18:17 Dose: 20 mg Tizanidine HCl (Zanaflex Tab*) 4 mg PO Q6HR PRN PRN Reason: SPASMS - MUSCLE Venlafaxine HCl (Effexor Tab (Nf)) 50 mg PO TID [facility] Last Admin: 01/22/17 09:28 Dose: 50 mg Vital Signs 01/21/17 01/21/17 01/21/17 11:49 13:46 15:10 Temperature 97.8 F 98.3 F 97.8 F Pulse Rate 93 102 93 Respiratory 16 14 Rate Blood Pressure 134/89 138/94 137/69 (mmHg) O2 Sat by Pulse 100 100 100 Oximetry 01/21/17 01/21/17 01/21/17 19:49 20:00 23:53 Temperature 97.6 F 97.8 F Pulse Rate 86 81 Respiratory 18 16 Rate Blood Pressure 148/90 154/88 (mmHg) O2 Sat by Pulse 100 99 Oximetry 01/22/17 04:21 Temperature 97.9 F Pulse Rate 80 Respiratory 16 Rate Blood Pressure 145/91 (mmHg) O2 Sat by Pulse 100 Oximetry Oxygen Devices in Use Now: None Appearance: 66 yo chronically ill appearing female laying in bed A+O x3 in NAD Eyes: No Scleral Icterus, PERRLA Ears/Nose/Mouth/Throat: NL Teeth, Lips, Gums, Mucous Membranes Moist Neck: NL Appearance and Movements; NL JVP Respiratory: Symmetrical Chest Expansion and Respiratory Effort, Clear to Auscultation Cardiovascular: NL Sounds; No Murmurs; No JVD, RRR, No Edema Abdominal: NL Sounds; No Tenderness; No Distention Extremities: No Edema, No Clubbing, Cyanosis Skin: No Rash or Ulcers, No Nodules or Sclerosis Neurological: Alert and Oriented x 3, NL Sensation, NL Muscle Strength and Tone , - - noted jaw tremor - no lip smacking or protruding tongue Lines/Tubes/Other Access: Clean, Dry and Intact Peripheral IV Nutrition: Taking PO's Result Diagrams: 01/22/17 05:27 01/22/17 05:21 Additional Lab and Data: Lab Results 01/19/17 01/19/17 01/19/17 Range/Units 17:15 17:15 17:15 WBC (3.5-10.8) 10^3/ul RBC (4.0-5.4) 10^6/ul Hgb (12.0-16.0) g/dl Hct (35-47) % MCV (80-97) fL MCH (27-31) pg MCHC (31-36) g/dl RDW (10.5-15) % Plt Count (150-450) 10^3/ul MPV (7.4-10.4) um3 Neut % (Auto) (38-83) % Lymph % (Auto) (25-47) % [place] % (Auto) (1-9) % Eos % (Auto) (0-6) % Baso % (Auto) (0-2) % Absolute Neuts (auto) (1.5-7.7) 10^3/ul Absolute Lymphs (auto) (1.0-4.8) 10^3/ul Absolute Monos (auto) (0-0.8) 10^3/ul Absolute Eos (auto) (0-0.6) 10^3/ul Absolute Basos (auto) (0-0.2) 10^3/ul Absolute Nucleated RBC 10^3/ul Nucleated RBC % INR (Anticoag Therapy) 1.37 H (0.89-1.11) Sodium (133-145) mmol/L Potassium (3.5-5.0) mmol/L Chloride (101-111) mmol/L Carbon Dioxide (22-32) mmol/L Anion Gap (2-11) mmol/L BUN (6-24) mg/dL Creatinine (0.51-0.95) mg/dL Est GFR ( Amer) (>60) Est GFR (Non-Af Amer) (>60) BUN/Creatinine Ratio (8-20) Glucose (70-100) mg/dL Lactic Acid 1.7 (0.5-2.0) mmol/L Calcium (8.6-10.3) mg/dL Magnesium (1.9-2.7) mg/dL Total Bilirubin (0.2-1.0) mg/dL AST (13-39) U/L ALT (7-52) U/L Alkaline Phosphatase (34-104) U/L Ammonia 51 (16-53) mol/L Total Creatine Kinase (10-223) U/L Troponin I (<0.04) ng/mL Total Protein (6.4-8.9) g/dL Albumin (3.2-5.2) g/dL Globulin (2-4) g/dL Albumin/Globulin Ratio (1-3) TSH (0.34-5.60) mcIU/mL Urine Color Urine Appearance Urine pH (5-9) Ur Specific [place] (1.010-1.030) Urine Protein (Negative) Urine Ketones (Negative) Urine Blood (Negative) Urine Nitrate (Negative) Urine Bilirubin (Negative) Urine Urobilinogen (Negative) Ur Leukocyte Esterase (Negative) Urine WBC (Auto) (Absent) Urine RBC (Auto) (Absent) Ur Squamous Epith Cells (Absent) Urine Bacteria (Absent) Urine Glucose (Negative) Salicylates (<30) mg/dL Urine Opiates Screen (None Detect) Acetaminophen mcg/mL Ur Barbiturates Screen (None Detect) Phenytoin (10-20) mcg/mL Ur Phencyclidine Scrn (None Detect) Ur Amphetamines Screen (None Detect) U Benzodiazepines Scrn (None Detect) Urine Cocaine Screen (None Detect) U Cannabinoids Screen (None Detect) Serum Alcohol (<10) mg/dL 01/20/17 01/20/17 01/20/17 Range/Units 03:00 05:33 05:33 WBC 7.1 (3.5-10.8) 10^3/ul RBC 3.74 L (4.0-5.4) 10^6/ul Hgb 11.7 L (12.0-16.0) g/dl Hct 35 (35-47) % MCV 93 (80-97) fL MCH 31 (27-31) pg MCHC 34 (31-36) g/dl RDW 13 (10.5-15) % Plt Count 216 (150-450) 10^3/ul MPV 8 (7.4-10.4) um3 Neut % (Auto) (38-83) % Lymph % (Auto) (25-47) % [place] % (Auto) (1-9) % Eos % (Auto) (0-6) % Baso % (Auto) (0-2) % Absolute Neuts (auto) (1.5-7.7) 10^3/ul Absolute Lymphs (auto) (1.0-4.8) 10^3/ul Absolute Monos (auto) (0-0.8) 10^3/ul Absolute Eos (auto) (0-0.6) 10^3/ul Absolute Basos (auto) (0-0.2) 10^3/ul Absolute Nucleated RBC 10^3/ul Nucleated RBC % INR (Anticoag Therapy) (0.89-1.11) Sodium (133-145) mmol/L Potassium (3.5-5.0) mmol/L Chloride (101-111) mmol/L Carbon Dioxide (22-32) mmol/L Anion Gap (2-11) mmol/L BUN (6-24) mg/dL Creatinine (0.51-0.95) mg/dL Est GFR ( Amer) (>60) Est GFR (Non-Af Amer) (>60) BUN/Creatinine Ratio (8-20) Glucose (70-100) mg/dL Lactic Acid (0.5-2.0) mmol/L Calcium (8.6-10.3) mg/dL Magnesium (1.9-2.7) mg/dL Total Bilirubin (0.2-1.0) mg/dL AST (13-39) U/L ALT (7-52) U/L Alkaline Phosphatase (34-104) U/L Ammonia (16-53) mol/L Total Creatine Kinase 278 H (10-223) U/L Troponin I (<0.04) ng/mL Total Protein (6.4-8.9) g/dL Albumin (3.2-5.2) g/dL Globulin (2-4) g/dL Albumin/Globulin Ratio (1-3) TSH (0.34-5.60) mcIU/mL Urine Color Urine Appearance Urine pH (5-9) Ur Specific [place] (1.010-1.030) Urine Protein (Negative) Urine Ketones (Negative) Urine Blood (Negative) Urine Nitrate (Negative) Urine Bilirubin (Negative) Urine Urobilinogen (Negative) Ur Leukocyte Esterase (Negative) Urine WBC (Auto) (Absent) Urine RBC (Auto) (Absent) Ur Squamous Epith Cells (Absent) Urine Bacteria (Absent) Urine Glucose (Negative) Salicylates (<30) mg/dL Urine Opiates Screen Presumptive positive H (None Detect) Acetaminophen mcg/mL Ur Barbiturates Screen None detected (None Detect) Phenytoin 30.3 H* (10-20) mcg/mL Ur Phencyclidine Scrn None detected (None Detect) Ur Amphetamines Screen None detected (None Detect) U Benzodiazepines Scrn Presumptive positive H (None Detect) Urine Cocaine Screen None detected (None Detect) U Cannabinoids Screen Presumptive positive H (None Detect) Serum Alcohol (<10) mg/dL Assess/Plan/Problems-Billing Assessment: 66 yo female with PMH of chronic pain with intrathecal morphine pump , seizures, migraines, depression who presented with with concern for confusion found to be dilantin toxic - Patient Problems (1) Confusion Comment: - Suspect phenytoin toxicity. much improvement from admission no noted lethargy today. No signs of infection. Per and pt they are adamant she takes her medications appropriately, but the states she is "out of it" at her baseline due to her medications so I suspect it was very possible she was confused and was taking her pills inappropriately as well it is possible her "different phenytoin" distributor increased her levels Pt and have refused locked medication box and VNS services. Will need close f/u with PCP. - Phenytoin level normal today. Plan to restart Dilantin at home does and check level in 3 days (2) Tardive dyskinesia Comment: - pt has noted jaw tremor starting yesterday. I spoke with the psychiatrist as a side consult who stated it was most likely because her Abilify was held for a couple days and now that it has been restarted serum levels should be normal within 5 days and her tremor should stop. As well the neurologist thought it was possibly secondary to effexor withdrawl. Pt is now back on her home mediation doses. Plan to f/u closely with PCP. (3) Chronic pain Comment: Follow by the pain clinic, with hx of multiple back surgeries, lumbar injections , chronic opioid use with intrathecal morphine pump and po diluadid prn. Continue Intrathecal morphine pump (4) Seizures Comment: Neurology following. Phenytoin toxicity on admission, now normal 19 this am. restart pt on home dose. Ok to DC home from a Neuro standpoint (5) Hypothyroid Comment: Continue levothyroxine. (6) Hx of pulmonary embolus Comment: - continue xarelto (7) Depressed Comment: - continue Effexor, Abilify - Discussed with pt and the risk of abilify and opioid combination and should follow up closely with PCP (8) Full code status (9) DVT prophylaxis Comment: xarelto Status and Disposition: continue inpatient. Plan for DC to home.
--- NOTE | 2017-01-22 11:57 | PN ---
Progress Note - Progress Note SOAP: Neurology progress note Date of service: 01/22/17 Subjective: Patient feels good today. She is asking if she can go home. Restarted on phenytoin last night at 100 mg and also 100 mg this am. Level of phenytoin was drawn a bit close to her am dose (about 1/2 hr after), and is 19.2. Objective: Vital Signs Temp Pulse Resp BP Pulse Ox 97.9 F 80 16 145/91 100 01/22/17 04:21 01/22/17 04:21 01/22/17 04:21 01/22/17 04:21 01/22/17 04:21 Current Medications Acetaminophen (Tylenol Tab*) 650 mg PO Q6H PRN PRN Reason: FEVER/PAIN Last Admin: 01/19/17 23:03 Dose: 650 mg Aripiprazole (Abilify Tab*) 5 mg PO DAILY [facility] Last Admin: 01/22/17 09:28 Dose: 5 mg Docusate Sodium (Colace Cap*) 200 mg PO BID [facility] Last Admin: 01/22/17 09:29 Dose: Not Given Sodium Chloride (Ns 0.9% 1000 Ml*) 1,000 mls @ 125 mls/hr IV PER RATE [facility] Stop: 01/22/17 15:44 Last Admin: 01/22/17 09:29 Dose: 125 mls/hr Levothyroxine Sodium (Synthroid Tab*) 75 mcg PO DAILY@0600 [facility] Last Admin: 01/22/17 05:06 Dose: 75 mcg Lorazepam (Ativan Tab(*)) 1 mg PO Q4H PRN PRN Reason: ANXIETY Last Admin: 01/20/17 03:58 Dose: 1 mg Melatonin (Melatonin (Nf)) 3 mg PO BEDTIME PRN; Protocol PRN Reason: Sleep Miscellaneous (Intrathecal Pain Pump (Pt's Own)) 1 note INTRATHEC .SEE COMMENTS [facility] Omeprazole (Prilosec Cap*) 20 mg PO DAILY@0600 [facility] Last Admin: 01/22/17 05:06 Dose: 20 mg Ondansetron HCl (Zofran Inj*) 4 mg IV Q6H PRN PRN Reason: NAUSEA Rivaroxaban (Xarelto (*)) 20 mg PO DAILY@1700 [facility] Last Admin: 01/21/17 18:17 Dose: 20 mg Tizanidine HCl (Zanaflex Tab*) 4 mg PO Q6HR PRN PRN Reason: SPASMS - MUSCLE Venlafaxine HCl (Effexor Tab (Nf)) 50 mg PO TID [facility] Last Admin: 01/22/17 09:28 Dose: 50 mg Laboratory Results - last 24 hr 01/22/17 01/22/17 01/22/17 05:21 05:27 05:27 WBC 9.8 RBC 4.61 Hgb 14.4 Hct 43 MCV 94 MCH 31 MCHC 33 RDW 13 Plt Count 230 MPV 9 Neut % (Auto) 60.7 Lymph % (Auto) 28.0 [place] % (Auto) 9.2 H Eos % (Auto) 1.8 Baso % (Auto) 0.3 Absolute Neuts (auto) 5.9 Absolute Lymphs (auto) 2.7 Absolute Monos (auto) 0.9 H Absolute Eos (auto) 0.2 Absolute Basos (auto) 0 Absolute Nucleated RBC 0 Nucleated RBC % 0 Sodium 131 L Potassium 3.8 Chloride 102 Carbon Dioxide 22 Anion Gap 7 BUN 10 Creatinine 0.56 Est GFR ( Amer) 139.7 Est GFR (Non-Af Amer) 108.6 BUN/Creatinine Ratio 17.9 Glucose 95 Calcium 9.4 Phenytoin 19.2 On neurological exam, she is awake, alert, oriented. Face symmetric, pupils symmetric, no nystagmus on lateral or straight gaze. No clear dyskinesia noted. Finger to nose has no clear action tremor bilaterally (improvement compared to yesterday) Assessment and Plan: 66-year-old female with history of localization related epilepsy and chronic back and neck pain, presented with dilantin toxicity. Her serum level of phenytoinc is gradually decreasing and now is 19.2 today. On exam, no sign of toxicity. She was started on phenytoin 100 mg po last night, and another dose of 100 mg early in am and the blood was drawn a bit close to the am dose and is 19.2. I think the patient is stable now to be discharged home from neurological standpoint. Resume the home dose of phenytoin of 200 mg bid starting tonight and check another level in 3 days (tuesday) with further adjustment of the dose as needed. Considering the history, it is possible that the patient had inaccurate intake of dosage of her meds that led to toxic levels, but is also possible that this was secondary to the change of the manager solution of her pills leading to different bioavailability and toxic levels; therefore needs a close monitoring of her level as outpatient, as above. She will follow up with her primary neurologist, Dr. Ray for further adjustment of the dose.
[2017-01-22 14:26] VITALS: BP 144/87
--- NOTE | 2017-01-23 12:48 | DS ---
DISCHARGE SUMMARY: DATE OF ADMISSION: 01/19/17 DATE OF DISCHARGE: 01/22/17 PROVIDER: Kamron Ziegler NP ATTENDING PHYSICIAN: Dr. Freddy Eddy* (reported dictated by Kamron Ziegler NP ). PRIMARY CARE PROVIDER: Dr. Sosa. NEUROLOGIST: Dr. Ray. PRIMARY DIAGNOSES: 1. Altered mental status secondary to Phenytoin toxicity. 2. Tardive dyskinesia, mild symptoms thought to be secondary to not receiving Abilify for an unknown amount of time. 3. Chronic pain with intrathecal morphine pump. 4. Seizure disorder. SECONDARY DIAGNOSES: 1. Depression. 2. History of pulmonary embolism, on Xarelto. 3. Hypothyroidism. 4. Cyclic vomiting syndrome. 5. ANJELICA. 6. History of levetiracetam-induced mood disorder. 7. History of migraines. DISCHARGE MEDICATIONS: 1. Effexor 75 mg p.o. t.i.d. 2. Tizanidine HCl 8 mg p.o. q.6 hours p.r.n. 3. Retin-A micro 0.04% topical daily. 4. Multivitamin/mineral 1 tab daily. 5. Xarelto 20 mg p.o. daily. 6. Synthroid 75 mcg p.o. daily. 7. Ritalin 10 mg p.o. 0700, 1400 p.r.n. 8. Morphine pump refill 8.279 mg intrathecal daily. 9. Abilify 5 mg p.o. daily. 10. Calcium carbonate/vitamin D 600/200 mg/unit one tab p.o. daily. 11. Dilaudid 8 mg p.o. b.i.d. p.r.n. 12. Dilantin Infatab two tab 200 mg p.o. b.i.d. HISTORY OF PRESENT ILLNESS: Please see history and physical by Dr. Lynn for full admission details, but in summary, this is a 66-year-old female with a past medical history of chronic pain secondary to multiple back surgeries, seizure disorder, and depression. He presents with her for concern of increased confusion x2 to 3 days. The patient came in confused and lethargic, and found to have a Phenytoin level of 35.9. Upper level of normal is 20. The patient was also found to have a urine tox screen positive for opiates, benzodiazepines, and cannabis. Per , who is her primary caregiver, he reported over the past couple of days, she appeared to be increasingly confused and he came home and found multiple pill bottles spilled up in counter. Another medication bottle full of water and some in the bath tub. It was unclear if she had taken meds excessively or just dropped the pill bottles out. The patient today reports that she was intentionally dumping them out as she ' did not want to take them anymore". However, the reports that she was quite confused, and is not sure if this is accurate information. The patient has done well throughout her hospitalization. She was lethargic in the first 2 days of her hospitalization, then was monitored on telemetry without any acute events or arrhythmias noted. Today, per , she is back at her baseline. He reports that at her baseline, she is frequently "medicated" and he states that he has gotten used to it and starts to recognize when she is "overly sedated". He and the patient adamantly deny that she abuses any of her medications at home. I do have concerns due to the polypharmacy that she could easily overdose on this combination. She has been well managed on this combination per the patient's for quite sometime. It is unclear why her Phenytoin level was toxic. She was seen in consultation by neurologist, Dr. Ray who follows the patient as an outpatient, as well as she was neurologist, Dr. Burr on followup. The thought is per , her Phenytoin distributor was changed last month. It is surely possible that her Phenytoin level increased from different medication. However, looking back, it is noted that her Phenytoin level was 26 on 02/24/06. So, it is possible that she is not being checked frequently enough and over time has become toxic, even though the patient has denied this. The patient's Phenytoin level has drifted down, today is 19.2. She was restarted on Phenytoin last night at a decreased dose of 100 mg x1 last night, the 100 mg x1 this morning with a recheck of her Phenytoin level which returned at 19.2. Dr. Burr recommends the patient should go back on her home dose Phenytoin of 200 mg p.o. b.i.d. and recheck her level in three days to see where she falls. Approximately 24 hours ago, the patient was noted to have some mild tremors in her hands and tremor in her jaw. She reports that she has experienced some tremors before in the past, but not in her jaw. I spoke with the neurologist, Dr. Burr about this and we thought that it was possibly secondary to her Effexor was held on admission and it was restarted only at 25 mg p.o. daily. This was titrated up yesterday and then she was placed back on her full home dose today. It is possible that these tardive dyskinesia like symptoms could be secondary from the withdrawal as well. I did call our psychiatrist preparation supervisor and discussed the case with them over the phone due to the patient is also on Abilify. She was restarted on her Abilify at admission and there is thought she most likely missed the doses and could be withdrawing from the Abilify. Per psychiatrist, he states that she should continue on her Abilify and the symptoms should resolve in about five days once the serum levels are up. I discussed at length with the patient and her today about the concerns for polypharmacy. as she is on complex list of medications that could have severe interactions with one another and increase her risk for confusion. The recommendations for Abilify and opioids, there is a noted boxed warning of increased risk of . I discussed this with the patient and her and they do not want to stop the Abilify now and I agree as this should be titrated and closely watched. She was recommended to followup with her primary doctor, Dr. Sosa to discuss if there are any medications that can be decreased to reduce her risk of polypharmacy. I also recommended she should followup with the psychiatrist who initially prescribed the Abilify for her, as that may be a helpful resource as well. She thinks that she is on it for depression and does not think that this has made any difference in the time that she has been on it. Today, the patient is alert and oriented back to her baseline. She was having some dizziness initially with ambulation, that has resolved. She reports her pain is well controlled. She is continued on her morphine pump throughout hospitalization and has not needed any p.r.n. pain medication. She reports that she rarely takes her Dilaudid at home and again denies abuse of her pain medications. Low suspicion for infection. The patient initially had an elevated white blood cell count of 11 on admission, that resolved by the next day. No lactic acidosis. Negative urine culture. She was noted to have an elevated AST of 62 on admission, which trended down to 55. This should be rechecked as an outpatient. DISCHARGE PLAN: 1. Plan for discharge to home with . 2. The patient was instructed to follow up with Dr. Sosa early this week. Visiting nurse service referral had been made; however, the patient and her have refused services and recommended medication lock box for the patient. 3. Recheck Dilantin level January 25 with the results to Dr. Sosa and Dr. Ray. TIME SPENT: Approximately 60 minutes were spent on this discharge. KAMRON ZIEGLER NP CC: Dr. Joselo Sosa; Dr. Ton Ray* [id number]/[facility] #: [id number] [facility]
== END 2017-01-22 15:15 | disposition home or self-care (01) | DRG 948 ==
LOC: ED 15:07 → MED 20:07 → OBSVTOIN 01-20 15:19 → MEDTELE 01-20 15:30
PROVIDERS: ADMIT Hospitalist; ATTEND Internal Medicine
DX: R41.82 Altered mental status, unspecified (principal); F32.9 Major depressive disorder, single episode, unspecified; T42.0X5A Adverse effect of hydantoin derivatives, initial encounter; Y92.009 Unspecified place in unspecified non-institutional (private) residence as the place of occurrence of the external cause; G24.01 Drug induced subacute dyskinesia; G89.29 Other chronic pain; G40.909 Epilepsy, unspecified, not intractable, without status epilepticus; E03.9 Hypothyroidism, unspecified; G47.33 Obstructive sleep apnea (adult) (pediatric); G43.909 Migraine, unspecified, not intractable, without status migrainosus; Z88.8 Allergy status to other drugs, medicaments and biological substances; Z86.711 Personal history of pulmonary embolism
CPT/HCPCS: 36415; 80048; 80053; 80185; 80307; 80320; 80329; 80361; 80365; 81003; 81015; 82140; 82550; 83605; 83735; 84443; 84484; 85025; 85027; 85610; 87086; 93005; A9270-GY; G0480

== ENCOUNTER 2017-09-02 09:06 | Emergency (ER) | payer OTHER ==
[2017-09-02 10:23] VITALS: BP 111/72
--- NOTE | 2017-09-02 10:56 | UC ---
Eye Complaint HPI - HPI Summary HPI Summary: TWO DAYS OF BILATERAL EYE CRUSTING DRAINAGE. HAD SINUS INFECTION LAST WEEK. BEGAN WITH RIGHT EYE WENT TO LEFT. - History of Current Complaint Chief Complaint: UCEye Stated Complaint: EYE ISSUE Time Seen by Provider: 09/02/17 10:26 Hx Obtained From: Patient, Family/Supervisor [employer] Hx Last Menstrual Period: menopausal Onset/Duration: Gradual Onset, Lasting Days, Still Present Timing: Days Severity Initially: Mild Severity Currently: Mild Pain Intensity: 0 Pain Scale Used: 0-10 Numeric Location of Injury: Conjunctiva Character: Dull Aggravating Factor(s): Nothing Alleviating Factor(s): Nothing Associated Signs And Symptoms: Positive: Drainage (Purulent) - Risk Factors Penetrating Injury Risk Factor: Negative Acute Glaucoma Risk Factors: Negative Optic Artery Occlusion Risk Factors: Negative - Allergies/Home Medications Allergies/Adverse Reactions: Allergies Allergy/AdvReac Type Severity Reaction Status Date / Time Meperidine [From Demerol HCl] Allergy Severe seizures Verified 09/02/17 10:17 Doxepin AdvReac Severe See Comment Verified 09/02/17 10:17 Gabapentin AdvReac Severe See Comment Verified 09/02/17 10:17 Levetiracetam [From Keppra] AdvReac Severe See Comment Verified 09/02/17 10:17 PMH/Surg Hx/FS Hx/Imm Hx Previously Healthy: Yes Other History Of: Anticoagulant Therapy - Surgical History Surgical History: Yes Surgery Procedure, Year, and Place: 2 ectopic pregnancies, cspinal fusion,back fusion, bilat knees,bilat feet, bilat hands,right shoulder,neck - Family History Known Family History: Positive: Hypertension, Other - Bipolar - Social History Occupation: Retired Lives: With Family Alcohol Use: Rare Substance Use Type: Marijuana, Prescribed Substance Use Comment - Amount & Last Used: Medical Marijuana Smoking Status (MU): Never Smoked Tobacco Have You Smoked in the Last Year: No - Immunization History Most Recent Influenza Vaccination: unknown Most Recent Tetanus Shot: unknown Most Recent Pneumonia Vaccination: n/a Review of Systems Constitutional: Negative Skin: Negative Eyes: Drainage, Eye Redness ENT: Sinus Congestion Respiratory: Negative Cardiovascular: Negative Gastrointestinal: Negative Genitourinary: Negative Motor: Negative Neurovascular: Negative Musculoskeletal: Negative Neurological: Negative Psychological: Negative Is Patient Immunocompromised?: No All Other Systems Reviewed And Are Negative: Yes Physical Exam Triage Information Reviewed: Yes Appearance: Well-Appearing, No Pain Distress, Well-Nourished Vital Signs: Initial Vital Signs Temp 98.8 F 09/02/17 10:19 Pulse 68 09/02/17 10:19 Resp 16 09/02/17 10:19 BP 111/72 09/02/17 10:19 Pulse Ox 96 09/02/17 10:19 Vital Signs Reviewed: Yes Eye Exam: Normal Eyes: Positive: Conjunctiva Inflamed, Discharge ENT Exam: Normal ENT: Positive: Normal ENT inspection, TMs normal Dental Exam: Normal Neck exam: Normal Neck: Positive: Supple, Nontender Respiratory Exam: Normal Respiratory: Positive: Chest non-tender, Lungs clear, Normal breath sounds, No respiratory distress, No accessory muscle use Cardiovascular Exam: Normal Cardiovascular: Positive: RRR, No Murmur, Pulses Normal, Brisk Capillary Refill Abdominal Exam: Normal Musculoskeletal Exam: Normal Neurological Exam: Normal Psychological Exam: Normal Skin Exam: Normal Eye Complaint Course/Dx - Differential Dx/Diagnosis Differential Diagnosis/HQI/PQRI: Conjunctivitis, Corneal Abrasion, Uveitis Provider Diagnoses: BILATERAL CONJUNCTIVITIS Discharge - Discharge Plan Condition: Stable Disposition: HOME Prescriptions: Tobramycin 0.3% OPHTH.CESILIA* 1 drop BOTH EYES Q4H #1 btl Patient Education Materials: Conjunctivitis (ED) Referrals: Joselo Sosa MD [Primary Care Provider] -
== END 2017-09-02 10:40 | disposition home or self-care (01) ==
LOC: UCEAST 09:06
DX: H10.9 Unspecified conjunctivitis (principal)
CPT/HCPCS: 99212; G0463

== ENCOUNTER 2019-03-29 16:48 | Emergency (ER) | payer OTHER ==
[2019-03-29 18:33] VITALS: BP 154/94
--- NOTE | 2019-03-29 19:07 | UC ---
Skin Complaint HPI - HPI Summary HPI Summary: 68 y/o female presents to the urgent care c/o B/L dorsal side of her feet w/ some infected blisters for the past 2 weeks. Pt states she went for a vacation to [place] and on 03/15 she got a sunburn on her feet. She got some blisters, then blisters broke. Seh has been applying Neosporyn topical cream. however. 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 She also states Hx of 20 surgeries inn her RT knee w/ replacement. Pt is concerned about osteomyelitis since she had it in the past after a foot surgery. Pain is 6/10 at touch.She started to noticed some yellowish drainage for the past 2 day. Pt denies fever, calf pain, SOB, chest pain, abdominal pain, N/V/D or Hx of MRSA. - History of Current Complaint Chief Complaint: UCSkin Time Seen by Provider: 03/29/19 19:06 Stated Complaint: SKIN COMPLAINT Hx Obtained From: Patient Hx Last Menstrual Period: menopausal ?: No Onset/Duration: Gradual Onset, Lasting Weeks - 2 weeks, Still Present, Worse Since - 3 days Skin Exposure Onset/Duration: Weeks Ago - 2 weeks ago sunburn Onset Severity: Mild Current Severity: Moderate Pain Intensity: 6 Pain Scale Used: 0-10 Numeric Location: Discrete - B/L dorsal side of her feet Character: Swelling, Pain, Redness Aggravating Factor(s): Touch Alleviating Factor(s): OTC Meds, OTC Creams/Salves Associated Signs & Symptoms: Positive: Rash, Drainage - yellowish, Tenderness. Negative: Nausea, Fever, Chills Related History: Other: - sunburn - Allergy/Home Medications Allergies/Adverse Reactions: Allergies Allergy/AdvReac Type Severity Reaction Status Date / Time doxepin Allergy mood Verified 03/29/19 18:35 alteration gabapentin Allergy mood Verified 03/29/19 18:35 alteration levetiracetam [From Keppra] Allergy mood Verified 03/29/19 18:35 alteration meperidine [From Demerol] Allergy seizures Verified 03/29/19 18:35 PMH/Surg Hx/FS Hx/Imm Hx Previously Healthy: Yes Endocrine History: Hypothyroidism Other Neurological History: C spinal fusion, chronic lower back pain, Reflex Sympathetic dystrophy Psychological History: Depression Other History Of: Anticoagulant Therapy - Surgical History Surgical History: Yes Surgery Procedure, Year, and Place: 2 ectopic pregnancies, cspinal fusion,back fusion, bilat knees, bilat feet, bilat hands,right shoulder,neck, morphine pump placement Other Surgical History: right knee replacement, 20 surgeries - Family History Known Family History: Positive: Hypertension, Other - Bipolar - Social History Occupation: Retired Lives: With Family Alcohol Use: None Substance Use Type: None Substance Use Comment - Amount & Last Used: Medical Marijuana Smoking Status (MU): Never Smoked Tobacco Have You Smoked in the Last Year: No - Immunization History Most Recent Influenza Vaccination: unknown Most Recent Tetanus Shot: unknown Most Recent Pneumonia Vaccination: n/a Review of Systems All Other Systems Reviewed And Are Negative: Yes Constitutional: Positive: Negative Skin: Positive: Rash - w/ some open sores red, painful and w/ yellowish drainage Eyes: Positive: Negative ENT: Positive: Negative Respiratory: Positive: Negative Cardiovascular: Positive: Negative Gastrointestinal: Positive: Negative Genitourinary: Positive: Negative Motor: Positive: Negative Neurovascular: Positive: Negative Musculoskeletal: Positive: Other: - B/L feet s/p sunburn Neurological: Positive: Negative Psychological: Positive: Negative Is Patient Immunocompromised?: No Physical Exam - Summary Physical Exam Summary: Vital Signs Reviewed: Yes General: well appearing, well nourished female in no acute apparent pain distress, sitting comfortably on examining table Eye Exam: Normal Eyes: Positive: Conjunctiva Clear - PERRLA< EOMI, fundi grossly normal ENT: Positive: Normal ENT inspection, Hearing grossly normal, Pharynx normal, TMs normal Neck: Positive: Supple, Nontender, No Lymphadenopathy Respiratory: Positive: Chest non-tender, Lungs clear, Normal breath sounds, No respiratory distress Cardiovascular: Positive: RRR, No Murmur, Pulses Normal, Brisk Capillary Refill Abdomen Description: Positive: Nontender, No Organomegaly, Soft. Negative: CVA Tenderness (R), CVA Tenderness (L) Bowel Sounds: Positive: Present Musculoskeletal: Positive: Strength Intact, ROM Intact, No Edema Neurological: Positive: Alert, Muscle Tone Normal Psychological Exam: Normal Skin: Positive: Positive erythematous patches w/ open blisters over B/L first MTPJ w/ indistinct borders, warm and tender to palpation, mild yellowish crusting observed, FROM of B/L feet. pulses WNL, capillary refill brisk, sensation WNL on left foot and decrease on RT foot. Triage Information Reviewed: Yes Vital Signs: Initial Vital Signs Temp 98.8 F 03/29/19 18:28 Pulse 92 03/29/19 18:28 Resp 15 03/29/19 18:28 BP 154/94 03/29/19 18:28 Pulse Ox 99 03/29/19 18:28 Course/Dx - Course Course Of Treatment: 68 y/o female presents to the urgent care c/o B/L dorsal side of her feet w/ some infected blisters for the past 2 weeks. Pt states she went for a vacation to [place] and on 03/15 she got a sunburn on her feet. She got some blisters, then blisters broke. Se has been applying Neosporyn topical cream. however. 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 She also states Hx of 20 surgeries inn her RT knee w/ replacement. Pt is concerned about osteomyelitis since she had it in the past after a foot surgery. Pain is 6/10 at touch. She started to noticed some yellowish drainage for the past 2 day. Pt denies fever, calf pain, SOB, chest pain, abdominal pain, N/V/D or Hx of MRSA. Hx obtained. Pt is hemodynamically stable, A&OX3, Vitals are WNL and Pt w/ B/L feet cellulitis on examination. B/l X-ray ordered to r/o osteomyelitis. Impression: Dr Whitley reviewed X-rays: there is B/L first MTPJ's w/ osteoarthritis and no osteomyelitis observed. Pt advised final radiology will be done tomorrow. Pt will be notified of any abnormal result. I discussed Pt's symptoms w/ Dr Whitley evaluated Pt and she recommended to fo a CBC and CRP which were ordered. [facility] also recommended Keflex PO. Pt will be notified of any abnormal lab results. Pt' s wound irrigated and bacitracin ointment applied and sterile dressing performed by the nurse. Kelfex PO and Bacitracin ordered to pharmacy as directed below. Pt Explained results and advised to f/u w/ her PCP in 2-3 days to make sure symptoms wre improving. Pt's BP is elevated today advised to decrease salt in diet, monitor BP and f/u with PCP for further management. D/C instructions explained. Pt understood and agreed w/ plan of care. Pt left the clinic hemodynamically stable, A&OX3 - Differential Diagnoses - Skin Complaint Differential Diagnoses: Abscess, Cellulitis, MRSA, Other - sunburn, osteomyelitis - Diagnoses Provider Diagnosis: Cellulitis of both feet, Elevated BP without diagnosis of hypertension - Physician Notification/Consults Discussed Patient Care With: Shagufta Whitley - Dr Whitley agreed w/ Pt's plan of care. Discharge - Sign-Out/Discharge Documenting (check all that apply): Patient Departure - d/C home All imaging exams completed and their final reports reviewed: No - Discharge Plan Condition: Stable Disposition: HOME Prescriptions: Bacitracin OINTMENT* 1 applic TOPICAL BID #1 tube Cephalexin CAP* [Keflex CAP*] 500 mg PO QID #28 cap Patient Education Materials: Cellulitis (ED) Referrals: Joselo Sosa MD [Primary Care Provider] - 2 Days Additional Instructions: 1-Please take full course of Keflex PO Antibiotic. 2- If redness and swelling doubles after 48 hrs of taking antibiotic and fever develops please go to the ER immediately. 3-Avoid standing for long periods of time or flexing your foot, keep it elevated and keep wounds clean and dry. Apply Bacitracin oint as directed 4-CBC and CRP were ordered. you will be notified of any abnormality.Please F/u with your PCP in 2 days to make sure symptoms are improving for further evaluation and treatment. 5- B/L feet X-rays shows osteoarthritis around 1st MTPJ. However final radiology reports will be done tomorrow. You will be notified of any abnormality for further treatment. 6- Your BP is elevated today. please decrease salt in your diet, monitor BP and if it continues to be elevated please f/u with your PCP for further management. - Billing Disposition and Condition Condition: STABLE Disposition: Home
[2019-03-30 11:07] LABS: ABS Eosinophils 0.2 10^3/ul (0-0.6); ABS Lymphocytes 2.7 10^3/ul (1.0-4.8); ABS Monocytes 0.7 10^3/ul (0-0.8); ABS Neutrophils 3.2 10^3/ul (1.5-7.7); Eosinophil % 3.3 %; Hematocrit 39 % (35-47); Lymphocyte % 38.7 %; Mean Corpuscular HGB Conc 34 g/dL (31-36); Mean Corpuscular Hemoglobin 31 pg (27-31); Mean Corpuscular Volume 92 fL (80-97); Mean Platelet Volume 8.6 fL (7.4-10.4); Nucleated Red Blood Cells % 0.1; Platelet Count 265 10^3/uL (150-450); Red Blood Count 4.19 10^6 /uL (3.70-4.87); Red Cell Distribution Width 13 % (10.5-15); White Blood Count 6.9 10^3/uL (3.5-10.8)
== END 2019-03-29 20:40 | disposition home or self-care (01) ==
LOC: UCEAST 16:48
DX: L03.116 Cellulitis of left lower limb (principal); L03.115 Cellulitis of right lower limb; R03.0 Elevated blood-pressure reading, without diagnosis of hypertension; Z79.01 Long term (current) use of anticoagulants; G90.521 Complex regional pain syndrome I of right lower limb; M54.9 Dorsalgia, unspecified; Z96.651 Presence of right artificial knee joint; Z88.5 Allergy status to narcotic agent; Z88.8 Allergy status to other drugs, medicaments and biological substances
CPT/HCPCS: 36415; 85025; 86140; 99213; G0463

== ENCOUNTER 2019-03-31 18:36 | Emergency (ER) | payer OTHER ==
--- NOTE | 2019-03-31 19:19 | ED ---
Skin Complaint - HPI Summary HPI Summary: 68 year old female presents with a history of rash on bilateral feet for the past 2 weeks. she states she got blisters on her feet two weeks ago when was [place]. has history of osteo of left foot. States she was seen in urgent care 2 days ago and started on Keflex. She states that she noticed some deeper red color to her foot. She states she's had increased pain. No increased swelling. No pain or swelling into calf muscles. 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 She states the area was draining pus yesterday but is not today as has been placing bactrician on the area. She states the lesions are looking better. She denies any fevers or chills. Denies any other complaints. came in today because there was a new red color to the right foot. - History of Current Complaint Chief Complaint: EDRashSkinAbscess Time Seen by Provider: 03/31/19 18:58 Stated Complaint: I HAVE CELLULITIS PER PT Hx Last Menstrual Period: menopausal Pain Intensity: 6 - Additional Pertinent History Primary Care Physician: [id number] - Allergy/Home Medications Allergies/Adverse Reactions: Allergies Allergy/AdvReac Type Severity Reaction Status Date / Time doxepin Allergy mood Verified 03/31/19 18:44 alteration gabapentin Allergy mood Verified 03/31/19 18:44 alteration levetiracetam [From Keppra] Allergy mood Verified 03/31/19 18:44 alteration meperidine [From Demerol] Allergy seizures Verified 03/31/19 18:44 PMH/Surg Hx/FS Hx/Imm Hx Endocrine/Hematology History: Reports: Hx Anticoagulant Therapy, Hx Thyroid Disease Denies: Hx Diabetes Comment Only: Other Endocrine/Hematological Disorders - HYPOTHYROID Cardiovascular History: Reports: 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 report History: Denies: Hx Renal Disease Musculoskeletal History: Reports: Hx Arthritis, Hx Back Problems, Hx Bursitis, Hx Fibromyalgia, Hx Orthopedic Injury, Hx Osteoporosis, Other Musculoskeletal History - neck surgery (fusion) 15-20 yrs ago Sensory History: Reports: Hx Contacts or Glasses Denies: Hx Hearing Aid Opthamlomology History: Reports: Hx Contacts or Glasses Neurological History: Reports: Hx Migraine - past hx/ not current, Hx Seizures, Other Neuro Impairments/Disorders - PAIN CLINIC PATIENT Psychiatric History: Reports: Hx Depression, Hx Suicide Attempt Denies: Hx of Violent Episodes Against Others - Cancer History Cancer Type, Location and Year: hx of skin cancer removal - Surgical History Surgery Procedure, Year, and Place: 2 ectopic pregnancies, cspinal fusion,back fusion, bilat knees, bilat feet, bilat hands,right shoulder,neck, morphine pump placement Hx Anesthesia Reactions: No Infectious Disease History: No Infectious Disease History: Denies: Hx Clostridium Difficile, Hx Hepatitis, Hx Human Immunodeficiency Virus (HIV), Hx of Known/Suspected MRSA, Hx Shingles, Hx Tuberculosis, Traveled Outside the in Last 30 Days - Family History Known Family History: Positive: Hypertension, Other - Bipolar - Social History Alcohol Use: Rare Hx Substance Use: No Substance Use Type: Reports: Marijuana Substance Use Comment - Amount & Last Used: Medical Marijuana Hx Tobacco Use: No Smoking Status (MU): Never Smoked Tobacco Have You Smoked in the Last Year: No Review of Systems Negative: Fever, Chills Negative: Chest Pain Negative: Shortness Of Breath Positive: Rash All Other Systems Reviewed And Are Negative: Yes Physical Exam Triage Information Reviewed: Yes Vital Signs On Initial Exam: Initial Vitals Temp Pulse Resp BP Pulse Ox 97.6 F 98 16 130/100 97 03/31/19 18:39 03/31/19 18:39 03/31/19 18:39 03/31/19 18:39 03/31/19 18:39 Vital Signs Reviewed: Yes Appearance: Positive: Well-Appearing Skin: Positive: Warm, Dry, Other - 2cm by 1cm ulcer lesions to bilateral big toe at MP. mild erythema around right great toe with older redness without warm on right foot that appears to be healing cellulitis Head/Face: Positive: Normal Head/Face Inspection Eyes: Positive: Normal, Conjunctiva Clear ENT: Positive: Pharynx normal Respiratory/Lung Sounds: Positive: Clear to Auscultation, Breath Sounds Present Cardiovascular: Positive: Normal, RRR Musculoskeletal: Positive: Strength/ROM Intact - foot Neurological: Positive: Normal Psychiatric: Positive: Normal Diagnostics - Vital Signs Vital Signs Temp Pulse Resp BP Pulse Ox 03/31/19 18:39 97.6 F 98 16 130/100 97 - Laboratory Result Diagrams: 03/31/19 19:21 03/31/19 19:21 Lab Statement: Any lab studies that have been ordered have been reviewed, and results considered in the medical decision making process. Course/Dx - Course Course Of Treatment: 68 year old female presents with a history of rash on bilateral feet for the past 2 weeks. she states she got blisters on her feet two weeks ago when was at [place] from [place]. has history of osteo of left foot. States she was seen in urgent care 2 days ago and started on Keflex. She states that she noticed some deeper red color to her foot. She states she' s had increased pain. No increased swelling. No pain or swelling into calf muscles. 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 She states the area was draining pus yesterday but is not today as has been placing bactrician on the area. She states the lesions are looking better. She denies any fevers or chills. Denies any other complaints. came in today because there was a new red color to the right foot. On exam has 2 ulcerative lesions on bilateral MTP with minimal erythema surrounding the lesions. the new redness today appears to be more of a healing cellulitis of right and left foot. Vitals are stable. wbc normal. crp normal. lactic normal. will have continue keflex and had on bactrim for more coverage pending wound culture. told follow up with primary. patient understand and agrees with plan. - Differential Diagnoses - Skin Complaint Differential Diagnoses: Abscess, Cellulitis, Contact Dermatitis - Diagnoses Provider Diagnoses: Cellulitis Discharge - Sign-Out/Discharge Documenting (check all that apply): Patient Departure Patient Received Moderate/Deep Sedation with Procedure: No - Discharge Plan Condition: Good Disposition: HOME Prescriptions: Sulfamethox/Trimethoprim DS* [Bactrim DS 800/160 TAB*] 1 tab PO BID #13 tab Patient Education Materials: Cellulitis (ED) Referrals: Joselo Sosa MD [Primary Care Provider] - Additional Instructions: continue Keflex as prescribe and topical antibiotic take bactrim twice a day for 7 days, first dose given in ED Follow up with primary within 3 days Return to ED if develop any fever or any new or worsening symptoms - Billing Disposition and Condition Condition: GOOD Disposition: Home
[2019-03-31 19:33] LABS: ABS Basophils 0.1 10^3/ul (0-0.2); ABS Eosinophils 0.2 10^3/ul (0-0.6); ABS Monocytes 0.6 10^3/ul (0-0.8); Eosinophil % 2.7 %; Hematocrit 43 % (35-47); Hemoglobin 14.6 g/dL (12.0-16.0); Lymphocyte % 38.1 %; Mean Corpuscular HGB Conc 34 g/dL (31-36); Mean Corpuscular Hemoglobin 31 pg (27-31); Mean Corpuscular Volume 92 fL (80-97); Platelet Count 274 10^3/uL (150-450); Red Blood Count 4.69 10^6 /uL (3.70-4.87); Red Cell Distribution Width 14 % (10.5-15); White Blood Count 7.9 10^3/uL (3.5-10.8)
[2019-03-31 19:47] LABS: Albumin 4.7 g/dL (3.2-5.2); Albumin/Globulin Ratio 1.4 (1-3); BUN/Creatinine Ratio 21.7 (8-20); C Reactive Protein 2.05 mg/L (<8.01); EGFR African American 102.7 (>60); EGFR Non-African American 84.9 (>60); Globulin 3.3 g/dL (2-4); Potassium 4.2 mmol/L (3.5-5.0); Total Bilirubin 0.3 mg/dL (0.2-1.0)
[2019-03-31] MEDS ORDERED: Sulfamethox/Trimethoprim DS 800/160* TAB PO ONE (20:04)
[2019-03-31 20:21] VITALS: BP 123/91
== END 2019-03-31 20:20 | disposition home or self-care (01) ==
LOC: ED 18:36
DX: L03.116 Cellulitis of left lower limb (principal); L03.115 Cellulitis of right lower limb; I10 Essential (primary) hypertension; Z79.02 Long term (current) use of antithrombotics/antiplatelets; Z86.711 Personal history of pulmonary embolism; Z88.8 Allergy status to other drugs, medicaments and biological substances
CPT/HCPCS: 36415; 80053; 83605; 85025; 86140; 87070; 87077; 87205; 87640; 87641; 99282; A9270-GY

== ENCOUNTER 2019-04-29 09:48 | Emergency (ER) | payer OTHER ==
[2019-04-29 10:19] VITALS: BP 122/65
--- NOTE | 2019-04-29 10:40 | UC ---
Respiratory Complaint HPI - HPI Summary HPI Summary: started experiencing cough 04/15/19. has treid mucinex over past few days and used albuterol inhaler 1-2 times with good relief but inhaler ran out few days ago. Cough is getting worse over past 48h. no CP, coughing up thick mucous. Denies fever or chills but feels fatigued from cough - History of Current Complaint Chief Complaint: UCRespiratory Stated Complaint: URI Time Seen by Provider: 04/29/19 10:31 Hx Obtained From: Patient Hx Last Menstrual Period: menopausal Onset/Duration: Gradual Onset Severity Initially: Mild Severity Currently: Moderate Pain Intensity: 5 Character: Cough: Productive Aggravating Factors: Exertion, Deep Breaths Alleviating Factors: Nothing Associated Signs And Symptoms: Positive: Wheezing, Nasal Congestion - Allergies/Home Medications Allergies/Adverse Reactions: Allergies Allergy/AdvReac Type Severity Reaction Status Date / Time doxepin Allergy mood Verified 04/29/19 10:19 alteration gabapentin Allergy mood Verified 04/29/19 10:19 alteration levetiracetam [From Keppra] Allergy mood Verified 04/29/19 10:19 alteration meperidine [From Demerol] Allergy seizures Verified 04/29/19 10:19 PMH/Surg Hx/FS Hx/Imm Hx Previously Healthy: Yes Endocrine History: Hypothyroidism Cardiovascular History: Deep Vein Thrombosis Respiratory History: Pulmonary Embolism - last PE 4 years ago, has been on Xeralto since Neurological History: Seizures Psychological History: Anxiety, Depression, Other - ADHD, chronic pain Other History Of: Anticoagulant Therapy - Surgical History Surgical History: Yes Surgery Procedure, Year, and Place: 2 ectopic pregnancies, cspinal fusion,back fusion, bilat knees, bilat feet, bilat hands,right shoulder,neck, morphine pump placement Other Surgical History: right knee replacement, 20 surgeries - Family History Known Family History: Positive: Hypertension, Other - Bipolar - Social History Occupation: Unemployed Lives: With Family Alcohol Use: Occasionally Substance Use Type: Marijuana Substance Use Comment - Amount & Last Used: Medical Marijuana Smoking Status (MU): Never Smoked Tobacco Have You Smoked in the Last Year: No - Immunization History Most Recent Influenza Vaccination: unknown Most Recent Tetanus Shot: unknown Most Recent Pneumonia Vaccination: n/a Review of Systems All Other Systems Reviewed And Are Negative: Yes Constitutional: Positive: Fatigue. Negative: Fever, Chills Skin: Positive: Negative. Negative: Rash Respiratory: Positive: Cough Cardiovascular: Positive: Negative. Negative: Chest Pain Gastrointestinal: Positive: Negative Neurological: Positive: Negative. Negative: Headache Psychological: Positive: Negative Is Patient Immunocompromised?: No Physical Exam Triage Information Reviewed: Yes Appearance: Well-Appearing, Well-Nourished, Other: - frequent productive cough Vital Signs: Initial Vital Signs Temp 97.5 F 04/29/19 10:16 Pulse 111 04/29/19 10:16 Resp 18 04/29/19 10:16 BP 122/65 04/29/19 10:16 Pulse Ox 99 04/29/19 10:16 Vital Signs Reviewed: Yes Eye Exam: Normal Eyes: Positive: Conjunctiva Clear ENT: Positive: Nasal congestion Respiratory: Positive: Rhonchi, Wheezing. Negative: Respiratory distress, Accessory muscle use Cardiovascular Exam: Normal Cardiovascular: Positive: RRR Neurological Exam: Normal Neurological: Positive: Alert Psychological Exam: Normal Diagnostics - Radiology No standard instances Radiology Interpretation Completed By: Radiologist - COPD , no acute findings Re-Evaluation - Re-Evaluation First Eval Re-Evaluation Time: 11:30 - O2 Sat RA 100%, lung sounds: scattered wheezes but no longer coughing Change: Improved Comment: pat states she feels better, cough much improved Respiratory Course/Dx - Differential Dx/Diagnosis Differential Diagnosis/HQI/PQRI: Bronchitis, Lower Resp Infection, Pulmonary Embolism, Sinusitis Provider Diagnosis: Bronchitis Discharge - Sign-Out/Discharge Documenting (check all that apply): Patient Departure All imaging exams completed and their final reports reviewed: Yes - Discharge Plan Condition: Improved Disposition: HOME Prescriptions: Albuterol HFA INHALER* [Ventolin HFA Inhaler*] 2 puff INH Q6H PRN #1 mdi PRN Reason: Shortness Of Breath Azithromycin TAB* [Zithromax TAB (Z-NOHEMY) 250 mg #6 tabs] 2 tab PO .TODAY, THEN 1 DAILY #1 nohemy Patient Education Materials: Acute Bronchitis (ED) Referrals: Joselo Sosa MD [Primary Care Provider] - 2 Days (for recheck) Additional Instructions: Rest and drink plenty of fluids start zithromax antibiotic and use albuterol inhaler as directed Please report to ER if your symptoms worsen at any time - Billing Disposition and Condition Condition: IMPROVED Disposition: Home
[2019-04-29] MEDS ORDERED: Albuterol/Ipratropium NEB.SOL* Albuterol 2.5 MG/Ipratropium 0.5 MG 3 ML INH ONE (10:51)
== END 2019-04-29 11:56 | disposition home or self-care (01) ==
LOC: UCEAST 09:48
DX: J40 Bronchitis, not specified as acute or chronic (principal); E03.9 Hypothyroidism, unspecified; Z86.718 Personal history of other venous thrombosis and embolism; Z79.01 Long term (current) use of anticoagulants
CPT/HCPCS: 71046; 99212; A9270-GY; G0463